=== PATIENT | female | born 1950 | race Caucasian/White ===

== ENCOUNTER → 2016-06-04 | Outpatient (CLI) | payer MEDICARE, MEDICAID ==
[~2016-06-04] VITALS: Ht 162.6 cm; Wt 111.6 kg
[~2016-06-04] MED LIST: ANTIVERT 25MG25 MG PO; CEPHALEXIN500 M1 PO; CLARITIN 1010 MG/TAB PO; DEXILANT30 MG PO; HCTZ 25MG TAB25 MG PO; LIORESAL 1010 MG/TAB PO; LIPITOR 80MG80 MG PO; MACROBID 1100 MG/CAP PO; MOBIC15 MG PO; NASONEX SPRAY17 GM NS; NEURONTIN100 MG/CAP PO; NORCO 325 MG-51 TAB PO; PATADAY 2.5 ML2.5 ML OU; PERCOCET 325 MG1 TA2 PO; PHENTERMINE15 MG PO; PRAVACHOL 40MG40 MG PO; PRIL40 PO; PRINZIDE 12.5 M1 TA1 PO; PROTONIX20 MG PO; PYRIDIUM200 M1 PO; SENOKOT S 50 MG1 TAB PO; SENOKOT8.6 MG PO; SINGULAIR 110 MG/TAB PO; ULTRAM 50MG TAB50 MG PO; ZANTAC 7575 MG PO; ZESTRIL 10MG10 MG PO
[2016-06-04 10:24] VITALS: BP 128/57; PULSE 70
[2016-06-04 10:48] VITALS: BP 128/57; PULSE 70
== END ==
LOC: LIGHT 10:20
DX: M50.021 Cervical disc disorder at C4-C5 level with myelopathy (principal)

== ENCOUNTER → 2016-08-06 | Outpatient (CLI) | payer MEDICARE, MEDICAID ==
[~2016-08-06] VITALS: Ht 162.6 cm; Wt 110.9 kg
== END ==
LOC: LIGHT 10:10
DX: M47.896 Other spondylosis, lumbar region (principal); K21.9 Gastro-esophageal reflux disease without esophagitis; E66.01 Morbid (severe) obesity due to excess calories; Z68.41 Body mass index [BMI] 40.0-44.9, adult; M17.0 Bilateral primary osteoarthritis of knee; Z90.710 Acquired absence of both cervix and uterus

== ENCOUNTER → 2016-09-17 | Outpatient (CLI) | payer MEDICARE, MEDICAID ==
[~2016-09-17] VITALS: Ht 162.6 cm; Wt 108.9 kg
[2016-09-17 09:35] VITALS: BP 114/76; PULSE 68
== END ==
LOC: LIGHT 09:30
DX: M47.816 Spondylosis without myelopathy or radiculopathy, lumbar region (principal); K21.9 Gastro-esophageal reflux disease without esophagitis; E66.01 Morbid (severe) obesity due to excess calories; Z68.41 Body mass index [BMI] 40.0-44.9, adult; Z71.3 Dietary counseling and surveillance; M17.0 Bilateral primary osteoarthritis of knee

== ENCOUNTER → 2016-10-29 | Outpatient (CLI) | payer MEDICARE, MEDICAID ==
[~2016-10-29] VITALS: Ht 162.6 cm; Wt 109.1 kg
[2016-10-29 09:54] VITALS: BP 145/63; PULSE 63
== END ==
LOC: LIGHT 09:25
DX: M47.816 Spondylosis without myelopathy or radiculopathy, lumbar region (principal); K21.9 Gastro-esophageal reflux disease without esophagitis; E66.01 Morbid (severe) obesity due to excess calories; Z68.41 Body mass index [BMI] 40.0-44.9, adult; Z71.3 Dietary counseling and surveillance; M17.0 Bilateral primary osteoarthritis of knee

== ENCOUNTER → 2016-11-23 | Outpatient (CLI) | payer MEDICARE, MEDICAID | LOC: MC.RAD 06:56 | DX: Z12.31 Encounter for screening mammogram for malignant neoplasm of breast (principal) ==

== ENCOUNTER → 2016-12-24 | Outpatient (CLI) | payer MEDICARE, MEDICAID ==
[~2016-12-24] VITALS: Ht 162.6 cm; Wt 108.0 kg
[2016-12-24 09:49] VITALS: BP 116/60; PULSE 64
== END ==
LOC: LIGHT 09:39
DX: M47.896 Other spondylosis, lumbar region (principal); M17.0 Bilateral primary osteoarthritis of knee; K21.9 Gastro-esophageal reflux disease without esophagitis; E66.01 Morbid (severe) obesity due to excess calories; Z68.41 Body mass index [BMI] 40.0-44.9, adult; Z90.89 Acquired absence of other organs; Z90.710 Acquired absence of both cervix and uterus; Z96.643 Presence of artificial hip joint, bilateral; Z98.890 Other specified postprocedural states

== ENCOUNTER → 2017-01-08 | Outpatient (CLI) | payer MEDICARE, MEDICAID, OTHER | LOC: MHCPAIN 08:05 | DX: G89.29 Other chronic pain (principal); M47.817 Spondylosis without myelopathy or radiculopathy, lumbosacral region; M53.3 Sacrococcygeal disorders, not elsewhere classified; M54.2 Cervicalgia; E66.9 Obesity, unspecified; Z87.891 Personal history of nicotine dependence | CPT/HCPCS: G0463 ==

== ENCOUNTER → 2017-01-25 | Outpatient (CLI) | payer MEDICARE | LOC: COL.RAD 07:22 | DX: M47.812 Spondylosis without myelopathy or radiculopathy, cervical region (principal); M47.817 Spondylosis without myelopathy or radiculopathy, lumbosacral region; M46.87 Other specified inflammatory spondylopathies, lumbosacral region; M43.16 Spondylolisthesis, lumbar region ==

== ENCOUNTER → 2017-02-05 | Outpatient (CLI) | payer MEDICARE | LOC: MHCPAIN 08:21 | DX: G89.29 Other chronic pain (principal); M47.27 Other spondylosis with radiculopathy, lumbosacral region; M53.3 Sacrococcygeal disorders, not elsewhere classified; Z87.891 Personal history of nicotine dependence | CPT/HCPCS: G0463 ==

== ENCOUNTER → 2017-02-25 | Outpatient (CLI) | payer MEDICARE ==
[~2017-02-25] VITALS: Ht 162.6 cm; Wt 110.2 kg
[~2017-02-25] MED LIST changes: +FASTIN30 MG PO; +NEURONTIN300 MG/CAP PO; +PAMELOR 25MG25 MG PO; -PHENTERMINE15 MG PO; +ZOFRAN ODT4 MG PO
[2017-02-25 09:13] VITALS: BP 130/68; PULSE 80
== END ==
LOC: LIGHT 08:51
DX: M47.9 Spondylosis, unspecified (principal); K21.9 Gastro-esophageal reflux disease without esophagitis; M17.0 Bilateral primary osteoarthritis of knee; E66.01 Morbid (severe) obesity due to excess calories; Z68.41 Body mass index [BMI] 40.0-44.9, adult; Z71.3 Dietary counseling and surveillance

== ENCOUNTER 2017-03-14 12:52 | Emergency (ER) | payer MEDICARE, OTHER, MEDICAID ==
[~2017-03-14] VITALS: Ht 162.6 cm; Wt 109.1 kg
[~2017-03-14 12:52] MED LIST changes: -NEURONTIN300 MG/CAP PO; -ZOFRAN ODT4 MG PO
[2017-03-14 12:56] VITALS: BP 142/73; TEMP 98.1
[2017-03-14] MEDS ORDERED: NEURONTIN300 MG/CAP PO (13:48)
[2017-03-14] MEDS ORDERED: PRAVACHOL 40MG40 MG PO (13:51)
[2017-03-14 15:07] LABS: BASO # 0.1 (0.0-0.2); BASO % 0.7 % (0.0-2.0); EOS # 0.2 (0.0-0.7); EOS % 2.7 % (0-4.0); GRAN # 4.7 (1.4-6.5); HEMOGLOBIN 13.3 g/dl (12.5-16.0); LYMPH # 2.1 (1.2-3.4); LYMPH % 27.6 % (20.0-51.0); MEAN CELL VOLUME 89 fl (80.0-100.0); MEAN CORPUSCULAR HEMOGLOBIN 30 pg (27.0-31.0); MEAN CORPUSCULAR HGB CONC 34 g/dl (33.0-37.0); MEAN PLATELET VOLUME 9.9 fl (7.4-10.4); MONO # 0.5 (0.1-0.6); MONO % 6.7 % (1.7-9.3); PLATELET COUNT 212 K/mm3 (130-400); RED BLOOD COUNT 4.38 M/mm3 (4.10-5.30); WHITE BLOOD COUNT 7.5 K/mm3 (4.8-10.8)
[2017-03-14 15:20] LABS: ADJUSTED CALCIUM 8.9 mg/dL (8.4-10.2); ALBUMIN 3.9 gm/dL (3.5-5.0); BILIRUBIN,TOTAL 0.5 mg/dL (0.0-1.0); CALCIUM 8.8 mg/dL (8.4-10.2); CREATININE, serum 0.84 mg/dL (0.52-1.25); POTASSIUM 3.1 mmol/L (3.4-5.0); TOTAL PROTEIN 6.3 gm/dL (6.4-8.2)
[2017-03-14 15:47] LABS: COLLECTION METHOD CLEAN CATCH
[2017-03-14 16:10] LABS: MUCOUS Present /lpf; PH 6 (5-8); SQUAMOUS EPITHELIAL 0-2 /hpf; URINE APPEARANCE Clear; URINE BACTERIA None Seen /hpf; URINE BILIRUBIN Negative (NEGATIVE); URINE BLOOD Negative (NEGATIVE); URINE COLOR Yellow; URINE GLUCOSE Negative (NEGATIVE); URINE KETONE Negative (NEGATIVE); URINE LEUKOCYTE ESTERASE Negative (NEGATIVE); URINE PROTEIN(semi-quant) Negative (NEGATIVE); URINE RBC 0-2 /hpf; URINE UROBILINOGEN Negative (NEGATIVE); URINE WBC 0-2 /hpf
[2017-03-14] MEDS ORDERED: ZOFRAN ODT4 MG PO (16:50)
[2017-03-14 17:07] VITALS: PULSE 63
== END 2017-03-14 17:10 | disposition home or self-care (01) ==
LOC: COL.ER 12:52
PROVIDERS: Emergency Medicine
DX: R11.2 Nausea with vomiting, unspecified (principal); R53.81 Other malaise; I10 Essential (primary) hypertension; F17.210 Nicotine dependence, cigarettes, uncomplicated; Z90.710 Acquired absence of both cervix and uterus; Z96.661 Presence of right artificial ankle joint
CPT/HCPCS: J2405; J7040

== ENCOUNTER 2017-03-23 07:52 | Outpatient (RCR) | payer MEDICARE, OTHER, MEDICAID ==
[~2017-03-23 07:52] MED LIST changes: +NEURONTIN300 MG/CAP PO; +ZOFRAN ODT4 MG PO
== END 2017-03-24 10:10 | disposition still patient (30) ==
LOC: WSPT 07:52
DX: Z01.818 Encounter for other preprocedural examination (principal); M25.811 Other specified joint disorders, right shoulder
CPT/HCPCS: G8984-GP; G8985-GP

== ENCOUNTER → 2017-04-08 | Outpatient (CLI) | payer MEDICARE, OTHER, MEDICAID ==
[~2017-04-08] VITALS: Ht 162.6 cm; Wt 112.3 kg
[2017-04-08 15:29] VITALS: BP 94/64; PULSE 72
== END ==
LOC: LIGHT 15:17
DX: M47.816 Spondylosis without myelopathy or radiculopathy, lumbar region (principal); K21.9 Gastro-esophageal reflux disease without esophagitis; E66.01 Morbid (severe) obesity due to excess calories; Z68.41 Body mass index [BMI] 40.0-44.9, adult; Z71.3 Dietary counseling and surveillance; M17.0 Bilateral primary osteoarthritis of knee

== ENCOUNTER → 2017-04-13 | Outpatient (CLI) | payer MEDICARE, OTHER, MEDICAID | LOC: MHCPAIN 08:04 | DX: G89.29 Other chronic pain (principal); M47.817 Spondylosis without myelopathy or radiculopathy, lumbosacral region; M53.3 Sacrococcygeal disorders, not elsewhere classified; Z87.891 Personal history of nicotine dependence | CPT/HCPCS: G0463 ==

== ENCOUNTER → 2017-05-11 | Outpatient (CLI) | payer MEDICARE, OTHER, MEDICAID | LOC: MHCPAIN 13:46 | DX: G89.29 Other chronic pain (principal); M47.27 Other spondylosis with radiculopathy, lumbosacral region; M53.3 Sacrococcygeal disorders, not elsewhere classified; Z87.891 Personal history of nicotine dependence | CPT/HCPCS: G0463 ==

== ENCOUNTER → 2017-05-20 | Outpatient (CLI) | payer MEDICARE, OTHER | LOC: COL.RAD 12:18 | DX: M25.511 Pain in right shoulder (principal); Z96.611 Presence of right artificial shoulder joint ==

== ENCOUNTER → 2017-05-20 | Outpatient (CLI) | payer MEDICARE, OTHER ==
[~2017-05-20] VITALS: Ht 162.6 cm; Wt 109.1 kg
[2017-05-20 09:33] VITALS: BP 96/56; PULSE 72
== END ==
LOC: LIGHT 09:28
DX: M47.9 Spondylosis, unspecified (principal); K21.9 Gastro-esophageal reflux disease without esophagitis; E66.01 Morbid (severe) obesity due to excess calories; Z68.41 Body mass index [BMI] 40.0-44.9, adult; Z71.3 Dietary counseling and surveillance; M17.0 Bilateral primary osteoarthritis of knee
CPT/HCPCS: G0463

== ENCOUNTER → 2017-05-25 | Outpatient (CLI) | payer MEDICARE, OTHER | LOC: COL.RAD 10:45 | DX: M25.511 Pain in right shoulder (principal); Z96.611 Presence of right artificial shoulder joint | CPT/HCPCS: Q9967 ==

== ENCOUNTER → 2017-06-10 | Outpatient (CLI) | payer MEDICARE, OTHER | LOC: MHCPAIN 09:59 | DX: M47.817 Spondylosis without myelopathy or radiculopathy, lumbosacral region (principal) ==

== ENCOUNTER → 2017-06-16 | Outpatient (CLI) | payer MEDICARE, OTHER, MEDICAID | LOC: MHCPAIN 09:57 | DX: G89.29 Other chronic pain (principal); M47.817 Spondylosis without myelopathy or radiculopathy, lumbosacral region; M54.16 Radiculopathy, lumbar region; M53.3 Sacrococcygeal disorders, not elsewhere classified; M48.061 Spinal stenosis, lumbar region without neurogenic claudication | CPT/HCPCS: G0463 ==

== ENCOUNTER → 2017-06-24 | Outpatient (CLI) | payer MEDICARE, OTHER, MEDICAID ==
[~2017-06-24] VITALS: Ht 162.6 cm; Wt 108.2 kg
[2017-06-24 10:11] VITALS: BP 100/60; PULSE 72
== END ==
LOC: LIGHT 08:50
DX: M47.9 Spondylosis, unspecified (principal); K21.9 Gastro-esophageal reflux disease without esophagitis; E66.01 Morbid (severe) obesity due to excess calories; Z68.41 Body mass index [BMI] 40.0-44.9, adult; Z71.3 Dietary counseling and surveillance; M17.0 Bilateral primary osteoarthritis of knee
CPT/HCPCS: G0463

== ENCOUNTER → 2017-06-25 | Outpatient (CLI) | payer MEDICARE, OTHER, MEDICAID | LOC: COL.RAD 09:19 | DX: M25.551 Pain in right hip (principal) | CPT/HCPCS: J3301; Q9967 ==

== ENCOUNTER → 2017-07-01 | Outpatient (RCR) | payer MEDICARE, OTHER, MEDICAID | LOC: WSPT | DX: Z47.89 Encounter for other orthopedic aftercare (principal); Z96.611 Presence of right artificial shoulder joint | CPT/HCPCS: G0283-GP; G8984-GP; G8985-GP ==

== ENCOUNTER → 2017-07-08 | Outpatient (CLI) | payer MEDICARE, OTHER, MEDICAID | LOC: MHCPAIN 09:51 | DX: M47.817 Spondylosis without myelopathy or radiculopathy, lumbosacral region (principal) ==

== ENCOUNTER → 2017-07-12 | Outpatient (CLI) | payer MEDICARE, OTHER, MEDICAID | LOC: MHCPAIN 11:26 | DX: G89.29 Other chronic pain (principal); M47.27 Other spondylosis with radiculopathy, lumbosacral region; M53.3 Sacrococcygeal disorders, not elsewhere classified; Z87.891 Personal history of nicotine dependence | CPT/HCPCS: G0463 ==

== ENCOUNTER → 2017-07-15 | Outpatient (CLI) | payer MEDICARE, OTHER, MEDICAID ==
[~2017-07-15] VITALS: Ht 162.6 cm; Wt 106.4 kg
[2017-07-15 14:20] VITALS: BP 102/68; PULSE 84
== END ==
LOC: LIGHT 14:16
DX: M47.9 Spondylosis, unspecified (principal); K21.9 Gastro-esophageal reflux disease without esophagitis; E66.01 Morbid (severe) obesity due to excess calories; Z68.41 Body mass index [BMI] 40.0-44.9, adult; Z71.3 Dietary counseling and surveillance; M17.0 Bilateral primary osteoarthritis of knee
CPT/HCPCS: G0463

== ENCOUNTER → 2017-07-21 | Outpatient (CLI) | payer MEDICARE, OTHER, MEDICAID | LOC: MHCPAIN 12:40 | DX: M47.817 Spondylosis without myelopathy or radiculopathy, lumbosacral region (principal) ==

== ENCOUNTER → 2017-07-28 | Outpatient (CLI) | payer MEDICARE, OTHER, MEDICAID | LOC: MHCPAIN 07:57 | DX: G89.29 Other chronic pain (principal); M47.817 Spondylosis without myelopathy or radiculopathy, lumbosacral region; M54.16 Radiculopathy, lumbar region; M53.3 Sacrococcygeal disorders, not elsewhere classified | CPT/HCPCS: G0463 ==

== ENCOUNTER → 2017-08-19 | Outpatient (CLI) | payer MEDICARE, OTHER, MEDICAID | LOC: MHCPAIN 11:53 | DX: M47.817 Spondylosis without myelopathy or radiculopathy, lumbosacral region (principal); M12.88 Other specific arthropathies, not elsewhere classified, other specified site; M43.16 Spondylolisthesis, lumbar region | CPT/HCPCS: J1100; J2250; J3010 ==

== ENCOUNTER → 2017-09-16 | Outpatient (CLI) | payer MEDICARE, OTHER, MEDICAID | LOC: MHCPAIN 10:23 | DX: M47.817 Spondylosis without myelopathy or radiculopathy, lumbosacral region (principal); M43.16 Spondylolisthesis, lumbar region | CPT/HCPCS: J1100; J2250; J3010 ==

== ENCOUNTER 2017-09-23 12:30 | Outpatient (RCR) | payer MEDICARE, OTHER, MEDICAID | END 2017-10-03 | disposition home or self-care (01) | LOC: WSPT | DX: Z47.1 Aftercare following joint replacement surgery (principal); Z96.611 Presence of right artificial shoulder joint | CPT/HCPCS: G8984-GP; G8985-GP ==

== ENCOUNTER → 2017-09-28 | Outpatient (CLI) | payer MEDICARE, OTHER, MEDICAID | LOC: MHCPAIN 08:35 | DX: G89.29 Other chronic pain (principal); M47.817 Spondylosis without myelopathy or radiculopathy, lumbosacral region; M53.3 Sacrococcygeal disorders, not elsewhere classified; M96.1 Postlaminectomy syndrome, not elsewhere classified; M50.90 Cervical disc disorder, unspecified, unspecified cervical region; R51 Headache | CPT/HCPCS: G0463 ==

== ENCOUNTER → 2017-09-30 | Outpatient (CLI) | payer MEDICARE, OTHER, MEDICAID ==
[~2017-09-30] VITALS: Ht 162.6 cm; Wt 108.2 kg
[2017-09-30 09:43] VITALS: BP 122/66; PULSE 76
== END ==
LOC: LIGHT 09:39
DX: M47.9 Spondylosis, unspecified (principal); K21.9 Gastro-esophageal reflux disease without esophagitis; E66.01 Morbid (severe) obesity due to excess calories; Z68.41 Body mass index [BMI] 40.0-44.9, adult; Z71.3 Dietary counseling and surveillance; M17.0 Bilateral primary osteoarthritis of knee
CPT/HCPCS: G0463

== ENCOUNTER → 2017-10-07 | Outpatient (CLI) | payer MEDICARE, OTHER, MEDICAID | LOC: MHCPAIN 08:04 | DX: M50.321 Other cervical disc degeneration at C4-C5 level (principal) ==

== ENCOUNTER → 2017-10-13 | Outpatient (CLI) | payer MEDICARE, OTHER, MEDICAID | LOC: MHCPAIN 08:32 | DX: G89.29 Other chronic pain (principal); M47.817 Spondylosis without myelopathy or radiculopathy, lumbosacral region; M54.16 Radiculopathy, lumbar region; M53.3 Sacrococcygeal disorders, not elsewhere classified; M50.90 Cervical disc disorder, unspecified, unspecified cervical region; R51 Headache | CPT/HCPCS: G0463 ==

== ENCOUNTER → 2017-10-13 | Outpatient (CLI) | payer MEDICARE, OTHER, MEDICAID | LOC: COL.RAD 09:38 | DX: M43.16 Spondylolisthesis, lumbar region (principal); M53.2X6 Spinal instabilities, lumbar region; I70.0 Atherosclerosis of aorta ==

== ENCOUNTER → 2017-11-04 | Outpatient (CLI) | payer MEDICARE, OTHER, MEDICAID ==
[~2017-11-04] VITALS: Ht 162.6 cm; Wt 110.7 kg
== END ==
LOC: LIGHT 09:41
DX: M47.816 Spondylosis without myelopathy or radiculopathy, lumbar region (principal); K21.9 Gastro-esophageal reflux disease without esophagitis; E66.01 Morbid (severe) obesity due to excess calories; Z68.41 Body mass index [BMI] 40.0-44.9, adult; Z71.3 Dietary counseling and surveillance; M17.0 Bilateral primary osteoarthritis of knee
CPT/HCPCS: G0463

== ENCOUNTER → 2017-11-11 | Outpatient (CLI) | payer MEDICARE, OTHER, MEDICAID ==
[~2017-11-11] MED LIST changes: +ADIPEX-P37.5 MG PO; -FASTIN30 MG PO
== END ==
LOC: MHCPAIN 12:59
DX: M47.817 Spondylosis without myelopathy or radiculopathy, lumbosacral region (principal); M43.16 Spondylolisthesis, lumbar region; M48.061 Spinal stenosis, lumbar region without neurogenic claudication
CPT/HCPCS: J1040; Q9967

== ENCOUNTER → 2017-11-24 | Outpatient (CLI) | payer MEDICARE, OTHER, MEDICAID | LOC: MHCPAIN 13:25 | DX: G89.29 Other chronic pain (principal); M47.817 Spondylosis without myelopathy or radiculopathy, lumbosacral region; M54.16 Radiculopathy, lumbar region; M53.3 Sacrococcygeal disorders, not elsewhere classified | CPT/HCPCS: G0463 ==

== ENCOUNTER → 2017-11-29 | Outpatient (CLI) | payer MEDICARE, OTHER, MEDICAID | LOC: COL.RAD 08:46 | DX: K22.4 Dyskinesia of esophagus (principal); K21.9 Gastro-esophageal reflux disease without esophagitis ==

== ENCOUNTER → 2017-12-06 | Outpatient (CLI) | payer MEDICARE, OTHER, MEDICAID | LOC: COL.VAS 13:49 | DX: I10 Essential (primary) hypertension (principal) ==

== ENCOUNTER → 2017-12-07 | Outpatient (CLI) | payer MEDICARE, OTHER, MEDICAID | LOC: MC.RAD 13:55 | DX: Z12.31 Encounter for screening mammogram for malignant neoplasm of breast (principal) ==

== ENCOUNTER → 2018-01-06 | Outpatient (CLI) | payer MEDICARE, OTHER, MEDICAID | LOC: LIGHT 11:13 | DX: Z01.818 Encounter for other preprocedural examination (principal) ==

== ENCOUNTER → 2018-02-08 | Outpatient (CLI) | payer MEDICARE, OTHER, MEDICAID | LOC: MHCPAIN 14:02 | DX: G89.29 Other chronic pain (principal); M47.817 Spondylosis without myelopathy or radiculopathy, lumbosacral region; M54.16 Radiculopathy, lumbar region; M53.3 Sacrococcygeal disorders, not elsewhere classified | CPT/HCPCS: G0463 ==

== ENCOUNTER → 2018-02-24 | Outpatient (CLI) | payer MEDICARE, OTHER, MEDICAID ==
[~2018-02-24] VITALS: Ht 162.6 cm; Wt 110.0 kg
[2018-02-24 15:43] VITALS: BP 144/80; PULSE 80
== END ==
LOC: LIGHT 11:04
DX: K21.9 Gastro-esophageal reflux disease without esophagitis (principal); E66.01 Morbid (severe) obesity due to excess calories; Z68.41 Body mass index [BMI] 40.0-44.9, adult; Z71.3 Dietary counseling and surveillance
CPT/HCPCS: G0463

== ENCOUNTER → 2018-04-04 | Outpatient (CLI) | payer MEDICARE, OTHER, MEDICAID | LOC: COL.RAD 12:53 | DX: S46.811A Strain of other muscles, fascia and tendons at shoulder and upper arm level, right arm, initial encounter (principal); Z96.611 Presence of right artificial shoulder joint | CPT/HCPCS: Q9967 ==

== ENCOUNTER → 2018-04-07 | Outpatient (CLI) | payer MEDICARE, OTHER, MEDICAID | LOC: MHCPAIN 13:57 | DX: M47.817 Spondylosis without myelopathy or radiculopathy, lumbosacral region (principal); M54.16 Radiculopathy, lumbar region ==

== ENCOUNTER → 2018-05-05 | Outpatient (CLI) | payer MEDICARE, OTHER, MEDICAID ==
[~2018-05-05] VITALS: Ht 162.6 cm; Wt 115.0 kg
[2018-05-05 13:08] VITALS: BP 130/80; PULSE 84
== END ==
LOC: LIGHT 12:47
DX: K21.9 Gastro-esophageal reflux disease without esophagitis (principal); M19.90 Unspecified osteoarthritis, unspecified site; E66.01 Morbid (severe) obesity due to excess calories; Z68.41 Body mass index [BMI] 40.0-44.9, adult; Z71.3 Dietary counseling and surveillance
CPT/HCPCS: G0463

== ENCOUNTER → 2018-05-05 | Outpatient (CLI) | payer MEDICARE, OTHER, MEDICAID | LOC: MHCPAIN 07:41 | DX: G89.29 Other chronic pain (principal); M47.817 Spondylosis without myelopathy or radiculopathy, lumbosacral region; M54.16 Radiculopathy, lumbar region; M53.3 Sacrococcygeal disorders, not elsewhere classified | CPT/HCPCS: G0463; J1100; J2250; J3010 ==

== ENCOUNTER → 2018-05-16 | Outpatient (CLI) | payer MEDICARE, OTHER, MEDICAID | LOC: MHCPAIN 11:18 | DX: M47.817 Spondylosis without myelopathy or radiculopathy, lumbosacral region (principal); M54.16 Radiculopathy, lumbar region | CPT/HCPCS: J1100; J2250; J3010 ==

== ENCOUNTER 2018-05-30 13:00 | Outpatient (RCR) | payer MEDICARE, OTHER, MEDICAID ==
[2018-06-18] MEDS ORDERED: NORCO 325 MG-51 TAB PO (14:21)
[2018-06-20] MEDS ORDERED: PERCOCET 325 MG1 TA2 PO (07:16)
[2018-06-20] MEDS ORDERED: ASPIRIN 32325 MG/TAB PO (07:18)
[2018-06-21] MEDS ORDERED: DULCOLAX S10 MG/SUPP RC (07:57)
[2018-06-21] MEDS ORDERED: XARELTO10 MG PO (07:57)
[2018-06-21] MEDS ORDERED: COLACE 100100 MG/CAP PO (07:57)
[2018-06-21] MEDS ORDERED: LIORESAL 1010 MG/TAB PO (07:57)
[2018-06-21] MEDS ORDERED: SENOKOT S 50 MG1 TAB PO (07:57)
[2018-06-21] MEDS ORDERED: GOOD NEIGH1200 MG/15 PO (07:57)
[2018-06-21] MEDS ORDERED: NORCO 325 MG-7.1 TAB PO (08:00)
[2018-06-21] MEDS ORDERED: ULTRAM 50MG TAB50 MG PO (08:00)
== END 2018-06-21 14:11 | disposition home or self-care (01) ==
LOC: WSPT 13:00
DX: Z47.1 Aftercare following joint replacement surgery (principal); Z96.611 Presence of right artificial shoulder joint
CPT/HCPCS: G8984-GP; G8985-GP

== ENCOUNTER 2018-06-16 15:30 | Outpatient (RCR) | payer MEDICARE, OTHER, MEDICAID ==
[~2018-06-16 15:30] MED LIST changes: -ASPIRIN 32325 MG/TAB PO
[2018-06-18] MEDS ORDERED: NORCO 325 MG-51 TAB PO (14:21)
[2018-06-20] MEDS ORDERED: PERCOCET 325 MG1 TA2 PO (07:16)
[2018-06-20] MEDS ORDERED: ASPIRIN 32325 MG/TAB PO (07:18)
[2018-06-21] MEDS ORDERED: LIORESAL 1010 MG/TAB PO (07:57)
[2018-06-21] MEDS ORDERED: COLACE 100100 MG/CAP PO (07:57)
[2018-06-21] MEDS ORDERED: DULCOLAX S10 MG/SUPP RC (07:57)
[2018-06-21] MEDS ORDERED: XARELTO10 MG PO (07:57)
[2018-06-21] MEDS ORDERED: SENOKOT S 50 MG1 TAB PO (07:57)
[2018-06-21] MEDS ORDERED: GOOD NEIGH1200 MG/15 PO (07:57)
[2018-06-21] MEDS ORDERED: ULTRAM 50MG TAB50 MG PO (08:00)
[2018-06-21] MEDS ORDERED: NORCO 325 MG-7.1 TAB PO (08:00)
== END 2018-06-21 14:10 | disposition home or self-care (01) ==
LOC: WSPT 15:30
DX: M47.816 Spondylosis without myelopathy or radiculopathy, lumbar region (principal); M17.0 Bilateral primary osteoarthritis of knee; M25.552 Pain in left hip; M25.551 Pain in right hip

== ENCOUNTER → 2018-06-16 | Outpatient (CLI) | payer MEDICARE, OTHER, MEDICAID ==
[~2018-06-16] VITALS: Ht 162.6 cm; Wt 114.1 kg
[~2018-06-16] MED LIST changes: +ASPIRIN 32325 MG/TAB PO
[2018-06-16 10:59] VITALS: BP 116/70; PULSE 68
== END ==
LOC: LIGHT 10:33
DX: K21.9 Gastro-esophageal reflux disease without esophagitis (principal); M17.0 Bilateral primary osteoarthritis of knee; Z68.43 Body mass index [BMI] 50.0-59.9, adult; Z71.3 Dietary counseling and surveillance
CPT/HCPCS: G0463

== ENCOUNTER → 2018-06-29 | Outpatient (CLI) | payer MEDICARE, OTHER, MEDICAID ==
[~2018-06-29] MED LIST changes: +ASPIRIN 32325 MG/TAB PO; +COLACE 100100 MG/CAP PO; +DULCOLAX S10 MG/SUPP RC; +GOOD NEIGH1200 MG/15 PO; +NORCO 325 MG-7.1 TAB PO; +XARELTO10 MG PO
== END ==
LOC: COL.RAD 13:22
DX: M25.551 Pain in right hip (principal)
CPT/HCPCS: J3301; Q9967

== ENCOUNTER 2018-07-12 14:55 | Outpatient (CLI) | payer MEDICARE, OTHER, MEDICAID ==
[~2018-07-12] VITALS: Ht 162.6 cm; Wt 113.7 kg
[2018-07-12 15:15] VITALS: BP 106/55; PULSE 62; TEMP 97.8
--- NOTE | 2018-07-12 16:15 | NUR ---
Pt stayed 30 minutes post Reclast infusion d/t this being the first time she has recieved this medication. INT discontinued intact.
== END 2018-07-12 16:16 | disposition home or self-care (01) ==
LOC: EUO 14:55
DX: M81.0 Age-related osteoporosis without current pathological fracture (principal)
CPT/HCPCS: J3489

== ENCOUNTER → 2018-07-19 | Outpatient (CLI) | payer MEDICARE, OTHER, MEDICAID | LOC: MHCPAIN 12:21 | DX: G89.29 Other chronic pain (principal); M47.817 Spondylosis without myelopathy or radiculopathy, lumbosacral region; M54.16 Radiculopathy, lumbar region; M53.3 Sacrococcygeal disorders, not elsewhere classified | CPT/HCPCS: G0463 ==

== ENCOUNTER 2018-08-07 19:26 | Emergency (ER) | payer MEDICARE, OTHER, MEDICAID ==
[~2018-08-07] VITALS: Ht 162.6 cm; Wt 113.6 kg
[2018-08-07 19:33] VITALS: TEMP 97.4
[2018-08-07 21:37] VITALS: BP 134/76; PULSE 91
== END 2018-08-07 21:50 | disposition home or self-care (01) ==
LOC: COL.ER 19:26
DX: S01.511A Laceration without foreign body of lip, initial encounter (principal); E78.00 Pure hypercholesterolemia, unspecified; K21.9 Gastro-esophageal reflux disease without esophagitis; W01.0XXA Fall on same level from slipping, tripping and stumbling without subsequent striking against object, initial encounter; Y92.009 Unspecified place in unspecified non-institutional (private) residence as the place of occurrence of the external cause

== ENCOUNTER 2018-08-14 13:52 | Emergency (ER) | payer MEDICARE, OTHER, MEDICAID ==
[2018-08-14 13:58] VITALS: BP 133/63; PULSE 88; TEMP 96.7
== END 2018-08-14 14:15 | disposition home or self-care (01) ==
LOC: COL.ER 13:52
DX: S01.511D Laceration without foreign body of lip, subsequent encounter (principal); Z79.891 Long term (current) use of opiate analgesic

== ENCOUNTER → 2018-09-13 | Outpatient (CLI) | payer MEDICARE, OTHER, MEDICAID ==
[~2018-09-13] MED LIST changes: +PHENTERMINE15 MG PO
== END ==
LOC: MHCPAIN 13:27
DX: G89.29 Other chronic pain (principal); M47.817 Spondylosis without myelopathy or radiculopathy, lumbosacral region; M54.16 Radiculopathy, lumbar region; M53.3 Sacrococcygeal disorders, not elsewhere classified; M54.12 Radiculopathy, cervical region
CPT/HCPCS: G0463

== ENCOUNTER → 2018-09-15 | Outpatient (CLI) | payer MEDICARE, OTHER, MEDICAID ==
[~2018-09-15] VITALS: Ht 162.6 cm; Wt 112.5 kg
[2018-09-15 08:43] VITALS: BP 108/78; PULSE 64
== END ==
LOC: LIGHT 08-04 16:09
DX: K21.9 Gastro-esophageal reflux disease without esophagitis (principal); M19.90 Unspecified osteoarthritis, unspecified site; E66.01 Morbid (severe) obesity due to excess calories; Z68.41 Body mass index [BMI] 40.0-44.9, adult; Z71.3 Dietary counseling and surveillance
CPT/HCPCS: G0463

== ENCOUNTER 2018-09-22 13:00 | Outpatient (RCR) | payer MEDICARE, OTHER, MEDICAID ==
[2018-10-26] MEDS ORDERED: ANTIVERT 25MG25 MG PO (17:43)
== END 2018-11-13 ==
LOC: WSPT
DX: Z47.89 Encounter for other orthopedic aftercare (principal); S72.422D Displaced fracture of lateral condyle of left femur, subsequent encounter for closed fracture with routine healing; M53.3 Sacrococcygeal disorders, not elsewhere classified; M47.27 Other spondylosis with radiculopathy, lumbosacral region; M50.10 Cervical disc disorder with radiculopathy, unspecified cervical region

== ENCOUNTER 2018-10-26 14:33 | Emergency (ER) | payer MEDICARE, OTHER, MEDICAID ==
[~2018-10-26] VITALS: Ht 162.6 cm; Wt 112.7 kg
[2018-10-26 14:37] VITALS: TEMP 97.6
[2018-10-26 15:12] LABS: ALANINE AMINOTRANSFERASE 12 U/L (9-52); ALBUMIN 3.9 gm/dL (3.5-5.0); ALKALINE PHOSPHATASE 92 U/L (50-136); ANION GAP 7 mmol/L (7-16); AST,SGOT 18 U/L (15-37); BILIRUBIN,TOTAL 0.4 mg/dL (0.0-1.0); BLOOD UREA NITROGEN 14 mg/dL (7-17); C-REACTIVE PROTEIN 0.7 mg/dL (0.0-0.9); CALCIUM 9.4 mg/dL (8.4-10.2); CARBON DIOXIDE 31 mmol/L (22-30); CHLORIDE 101 mmol/L (98-107); CREATININE, serum 0.79 (0.52-1.25); GLUCOSE 97 mg/dL (74-106); LIPASE 57 U/L (23-300); POTASSIUM 3.3 mmol/L (3.4-5.0); SODIUM 139 mmol/L (137-145)
[2018-10-26 15:13] LABS: BASO # 0.1 (0.0-0.2); BASO % 0.7 % (0.0-2.0); EOS # 0.2 (0.0-0.7); EOS % 2.9 % (0-4.0); GRAN % 53.6 % (42.2-75.2); HEMATOCRIT 43.2 % (37.0-47.0); HEMOGLOBIN 14.3 g/dl (12.5-16.0); LYMPH # 2.5 (1.2-3.4); LYMPH % 33.6 % (20.0-51.0); MEAN CELL VOLUME 88 fl (80.0-100.0); MEAN CORPUSCULAR HEMOGLOBIN 29 pg (27.0-31.0); MEAN CORPUSCULAR HGB CONC 33 g/dl (33.0-37.0); MEAN PLATELET VOLUME 10.1 fl (7.4-10.4); MONO # 0.7 (0.1-0.6); MONO % 8.8 % (1.7-9.3); PLATELET COUNT 278 K/mm3 (130-400); RED BLOOD COUNT 4.91 M/mm3 (4.10-5.30); REDCELL DISTRIBUTION WIDTH-CV 14.4 % (11.5-14.5)
[2018-10-26 15:22] LABS: TROPONIN-I < 0.012 ng/mL (0.000-0.035)
[2018-10-26] MEDS ORDERED: ANTIVERT 25MG25 MG PO (17:43)
[2018-10-26 19:15] VITALS: BP 125/78; PULSE 79
== END 2018-10-26 19:15 | disposition home or self-care (01) ==
LOC: COL.ER 14:33
PROVIDERS: Emergency Medicine
DX: R07.89 Other chest pain (principal); R42 Dizziness and giddiness; I10 Essential (primary) hypertension; E78.5 Hyperlipidemia, unspecified; K21.9 Gastro-esophageal reflux disease without esophagitis; Z87.891 Personal history of nicotine dependence
CPT/HCPCS: J2060; J2405; J7030

== ENCOUNTER 2018-11-10 10:45 | Outpatient (RCR) | payer MEDICARE, OTHER, MEDICAID | END 2018-11-11 09:44 | disposition home or self-care (01) | LOC: WSPT 10:45 | DX: M50.10 Cervical disc disorder with radiculopathy, unspecified cervical region (principal) ==

== ENCOUNTER → 2018-11-10 | Outpatient (CLI) | payer MEDICARE, OTHER, MEDICAID | LOC: COL.RAD 08:34 | DX: I10 Essential (primary) hypertension (principal); M48.02 Spinal stenosis, cervical region ==

== ENCOUNTER → 2018-11-15 | Outpatient (CLI) | payer MEDICARE, OTHER, MEDICAID | LOC: MHCPAIN 07:50 | DX: G89.29 Other chronic pain (principal); M47.817 Spondylosis without myelopathy or radiculopathy, lumbosacral region; M53.3 Sacrococcygeal disorders, not elsewhere classified | CPT/HCPCS: G0463 ==

== ENCOUNTER → 2018-11-17 | Outpatient (CLI) | payer MEDICARE, OTHER, MEDICAID | LOC: MHCPAIN 07:51 | DX: M47.812 Spondylosis without myelopathy or radiculopathy, cervical region (principal); M54.12 Radiculopathy, cervical region ==

== ENCOUNTER 2018-11-24 08:00 | Outpatient (RCR) | payer MEDICARE, OTHER, MEDICAID | END 2018-11-29 09:56 | disposition home or self-care (01) | LOC: WSOT 08:00 | DX: G56.01 Carpal tunnel syndrome, right upper limb (principal) ==

== ENCOUNTER → 2018-11-28 | Outpatient (CLI) | payer MEDICARE, OTHER, MEDICAID | LOC: MHCPAIN 11:05 | DX: G89.29 Other chronic pain (principal); M47.812 Spondylosis without myelopathy or radiculopathy, cervical region; M54.12 Radiculopathy, cervical region ==

== ENCOUNTER → 2018-12-01 | Outpatient (CLI) | payer MEDICARE, OTHER, MEDICAID ==
[~2018-12-01] VITALS: Ht 162.6 cm; Wt 112.0 kg
[2018-12-01 14:39] VITALS: BP 152/60; PULSE 80
== END ==
LOC: LIGHT 11-10 14:19
DX: K21.9 Gastro-esophageal reflux disease without esophagitis (principal); E66.01 Morbid (severe) obesity due to excess calories; Z68.41 Body mass index [BMI] 40.0-44.9, adult; Z71.3 Dietary counseling and surveillance
CPT/HCPCS: G0463

== ENCOUNTER → 2018-12-15 | Outpatient (CLI) | payer MEDICARE, OTHER, MEDICAID | LOC: MHCPAIN 09:18 | DX: M47.812 Spondylosis without myelopathy or radiculopathy, cervical region (principal); M54.12 Radiculopathy, cervical region; G89.29 Other chronic pain | CPT/HCPCS: G0463; J1100; J2250; J3010 ==

== ENCOUNTER → 2018-12-23 | Outpatient (CLI) | payer MEDICARE, OTHER, MEDICAID | LOC: COL.RAD 06:56 | DX: M48.061 Spinal stenosis, lumbar region without neurogenic claudication (principal); M47.816 Spondylosis without myelopathy or radiculopathy, lumbar region; M51.36 Other intervertebral disc degeneration, lumbar region; M79.18 Myalgia, other site ==

== ENCOUNTER → 2019-02-02 | Outpatient (CLI) | payer MEDICARE, OTHER, MEDICAID ==
[~2019-02-02] VITALS: Ht 162.6 cm; Wt 110.7 kg
[2019-02-02 09:26] VITALS: BP 144/82; PULSE 64
== END ==
LOC: LIGHT 09:04
DX: K21.9 Gastro-esophageal reflux disease without esophagitis (principal); E66.01 Morbid (severe) obesity due to excess calories; Z68.41 Body mass index [BMI] 40.0-44.9, adult; Z71.3 Dietary counseling and surveillance
CPT/HCPCS: G0463

== ENCOUNTER 2019-02-09 10:45 | Outpatient (RCR) | payer MEDICARE, OTHER, MEDICAID | END 2019-02-28 13:47 | disposition home or self-care (01) | LOC: WSC 10:45 | DX: M51.36 Other intervertebral disc degeneration, lumbar region (principal) ==

== ENCOUNTER → 2019-02-15 | Outpatient (CLI) | payer MEDICARE, OTHER, MEDICAID | LOC: MHCPAIN 12:18 | DX: G89.29 Other chronic pain (principal); M47.817 Spondylosis without myelopathy or radiculopathy, lumbosacral region; M54.16 Radiculopathy, lumbar region; M53.3 Sacrococcygeal disorders, not elsewhere classified | CPT/HCPCS: G0463 ==

== ENCOUNTER → 2019-04-27 | Outpatient (CLI) | payer MEDICARE, OTHER, MEDICAID | LOC: COL.RAD 12:26 | DX: Z01.812 Encounter for preprocedural laboratory examination (principal); I65.29 Occlusion and stenosis of unspecified carotid artery; E11.69 Type 2 diabetes mellitus with other specified complication; M47.812 Spondylosis without myelopathy or radiculopathy, cervical region | CPT/HCPCS: Q9967 ==

== ENCOUNTER → 2019-05-09 | Outpatient (CLI) | payer MEDICARE, OTHER, MEDICAID ==
[~2019-05-09] MED LIST changes: +TAMIFLU 75MG75 MG PO; +ZOFRAN ODT8 MG PO
== END ==
LOC: MHCPAIN 10:19
DX: M47.817 Spondylosis without myelopathy or radiculopathy, lumbosacral region (principal); M53.3 Sacrococcygeal disorders, not elsewhere classified
CPT/HCPCS: G0463

== ENCOUNTER 2019-05-25 07:07 | Emergency (ER) | payer MEDICARE, OTHER, MEDICAID ==
[~2019-05-25] VITALS: Ht 162.6 cm; Wt 109.1 kg
[~2019-05-25 07:07] MED LIST changes: -TAMIFLU 75MG75 MG PO; -ZOFRAN ODT8 MG PO
[2019-05-25 07:46] VITALS: TEMP 99.1
[2019-05-25 08:34] LABS: BASO % 0.4 % (0.0-2.0); EOS % 0.4 % (0-4.0); GRAN # 6.6 (1.4-6.5); HEMATOCRIT 40.7 % (37.0-47.0); HEMOGLOBIN 13.5 g/dl (12.5-16.0); LYMPH # 0.6 (1.2-3.4); LYMPH % 7.9 % (20.0-51.0); MEAN CELL VOLUME 91 fl (80.0-100.0); MEAN CORPUSCULAR HEMOGLOBIN 30 pg (27.0-31.0); MEAN CORPUSCULAR HGB CONC 33 g/dl (33.0-37.0); MEAN PLATELET VOLUME 10.4 fl (7.4-10.4); MONO # 0.5 (0.1-0.6); MONO % 6.9 % (1.7-9.3); PLATELET COUNT 180 K/mm3 (130-400); RED BLOOD COUNT 4.49 M/mm3 (4.10-5.30); REDCELL DISTRIBUTION WIDTH-CV 13.2 % (11.5-14.5)
[2019-05-25 08:47] LABS: ALBUMIN 4.1 gm/dL (3.5-5.0); BILIRUBIN,TOTAL 0.7 mg/dL (0.0-1.0); CALCIUM 8.7 mg/dL (8.4-10.2); CREATININE, serum 0.7 (0.52-1.25); POTASSIUM 3.4 mmol/L (3.4-5.0); TOTAL PROTEIN 6.8 gm/dL (6.4-8.2)
[2019-05-25] MEDS ORDERED: TAMIFLU 75MG75 MG PO (09:28)
[2019-05-25] MEDS ORDERED: ZOFRAN ODT8 MG PO (09:31)
[2019-05-25 09:58] VITALS: BP 145/76; PULSE 83
== END 2019-05-25 09:58 | disposition home or self-care (01) ==
LOC: COL.ER 07:07
PROVIDERS: Emergency Medicine
DX: J11.1 Influenza due to unidentified influenza virus with other respiratory manifestations (principal); I10 Essential (primary) hypertension
CPT/HCPCS: J2405; J2930; J7040

== ENCOUNTER → 2019-06-08 | Outpatient (CLI) | payer MEDICARE, OTHER, MEDICAID ==
[~2019-06-08] VITALS: Ht 162.6 cm; Wt 105.7 kg
[~2019-06-08] MED LIST changes: +TAMIFLU 75MG75 MG PO; +ZOFRAN ODT8 MG PO
[2019-06-08 09:24] VITALS: BP 130/80; PULSE 72
== END ==
LOC: LIGHT 09:06
DX: Z68.41 Body mass index [BMI] 40.0-44.9, adult (principal); M47.816 Spondylosis without myelopathy or radiculopathy, lumbar region; K21.9 Gastro-esophageal reflux disease without esophagitis
CPT/HCPCS: G0463

== ENCOUNTER → 2019-07-19 | Outpatient (CLI) | payer MEDICARE, OTHER, MEDICAID | LOC: COL.RAD 07-18 10:30 | DX: M25.551 Pain in right hip (principal) | CPT/HCPCS: J3301; Q9967 ==

== ENCOUNTER 2019-10-05 13:30 | Outpatient (RCR) | payer OTHER, MEDICAID | END 2019-10-11 09:15 | disposition home or self-care (01) | LOC: WSPT 13:30 | DX: M50.10 Cervical disc disorder with radiculopathy, unspecified cervical region (principal) ==

== ENCOUNTER → 2019-10-17 | Outpatient (CLI) | payer OTHER, MEDICAID | LOC: MHCPAIN 09:45 | DX: M47.812 Spondylosis without myelopathy or radiculopathy, cervical region (principal); M54.2 Cervicalgia; R51 Headache; G89.29 Other chronic pain | CPT/HCPCS: G0463 ==

== ENCOUNTER → 2019-11-14 | Outpatient (CLI) | payer MEDICARE, MEDICAID | LOC: COL.RAD 13:30 | DX: M25.551 Pain in right hip (principal) | CPT/HCPCS: J3301; Q9967 ==

== ENCOUNTER → 2019-11-23 | Outpatient (CLI) | payer MEDICARE, MEDICAID ==
[~2019-11-23] VITALS: Ht 162.6 cm; Wt 107.7 kg
[2019-11-23 14:28] VITALS: BP 130/72; PULSE 84
== END ==
LOC: LIGHT
DX: E66.01 Morbid (severe) obesity due to excess calories (principal); Z68.41 Body mass index [BMI] 40.0-44.9, adult; K21.9 Gastro-esophageal reflux disease without esophagitis
CPT/HCPCS: G0463

== ENCOUNTER 2019-12-02 04:24 | Emergency (ER) | payer MEDICARE, MEDICAID ==
[~2019-12-02] VITALS: Ht 162.6 cm; Wt 107.7 kg
[2019-12-02 04:28] VITALS: TEMP 98.6
[2019-12-02 05:18] LABS: BASO % 0.4 % (0.0-2.0); EOS # 0.1 (0.0-0.7); GRAN # 8.5 (1.4-6.5); GRAN % 74.9 % (42.2-75.2); HEMATOCRIT 39.5 % (37.0-47.0); HEMOGLOBIN 12.8 g/dl (12.5-16.0); LYMPH # 1.8 (1.2-3.4); LYMPH % 15.6 % (20.0-51.0); MEAN CELL VOLUME 91 fl (80.0-100.0); MEAN CORPUSCULAR HEMOGLOBIN 30 pg (27.0-31.0); MEAN CORPUSCULAR HGB CONC 32 g/dl (33.0-37.0); MEAN PLATELET VOLUME 9.8 fl (7.4-10.4); MONO # 0.9 (0.1-0.6); MONO % 7.7 % (1.7-9.3); PLATELET COUNT 199 K/mm3 (130-400); RED BLOOD COUNT 4.33 M/mm3 (4.10-5.30); REDCELL DISTRIBUTION WIDTH-CV 13.1 % (11.5-14.5)
[2019-12-02 05:33] LABS: ALBUMIN 3.5 gm/dL (3.5-5.0); BILIRUBIN,TOTAL 0.9 mg/dL (0.0-1.0); CALCIUM 8.3 mg/dL (8.4-10.2); CREATININE, serum 0.69 (0.52-1.25); POTASSIUM 3.4 mmol/L (3.4-5.0); TOTAL PROTEIN 6.4 gm/dL (6.4-8.2)
[2019-12-02 05:45] LABS: ERYTHROCYTE SEDIMENTATION RATE 13 mm/hr (0-30)
[2019-12-02 08:35] VITALS: BP 145/78; PULSE 84
== END 2019-12-02 08:35 | disposition short-term general hospital (02) ==
LOC: COL.ER 04:24
PROVIDERS: Emergency Medicine
DX: G89.18 Other acute postprocedural pain (principal); K21.9 Gastro-esophageal reflux disease without esophagitis; Z87.891 Personal history of nicotine dependence; Z88.6 Allergy status to analgesic agent; Z88.2 Allergy status to sulfonamides
CPT/HCPCS: J2405; J3010; J3370; J7030; J7040; Q9967

== ENCOUNTER → 2019-12-04 | Outpatient (CLI) | payer MEDICARE, MEDICAID | LOC: MC.RAD 14:09 | DX: Z12.31 Encounter for screening mammogram for malignant neoplasm of breast (principal) ==

== ENCOUNTER → 2020-01-16 | Outpatient (CLI) | payer MEDICARE, MEDICAID ==
[~2020-01-16] MED LIST changes: +PEPCID 20MG TAB20 MG PO
== END ==
LOC: MHCPAIN 10:32
DX: M47.817 Spondylosis without myelopathy or radiculopathy, lumbosacral region (principal); M53.3 Sacrococcygeal disorders, not elsewhere classified; G89.29 Other chronic pain; M54.16 Radiculopathy, lumbar region
CPT/HCPCS: G0463

== ENCOUNTER → 2020-01-18 | Outpatient (CLI) | payer MEDICARE, MEDICAID ==
[~2020-01-18] VITALS: Ht 162.6 cm; Wt 104.8 kg
[2020-01-18 13:07] VITALS: BP 130/84; PULSE 76
== END ==
LOC: LIGHT 13:14
DX: E66.01 Morbid (severe) obesity due to excess calories (principal); Z68.39 Body mass index [BMI] 39.0-39.9, adult; K21.9 Gastro-esophageal reflux disease without esophagitis
CPT/HCPCS: G0463

== ENCOUNTER → 2020-01-29 | Outpatient (CLI) | payer MEDICARE, MEDICAID | LOC: COL.RAD 01:30 | DX: M25.551 Pain in right hip (principal) | CPT/HCPCS: J3301; Q9967 ==

== ENCOUNTER → 2020-03-07 | Outpatient (CLI) | payer MEDICARE, MEDICAID ==
[~2020-03-07] VITALS: Ht 162.6 cm; Wt 103.6 kg
[2020-03-07 13:04] VITALS: BP 160/80; PULSE 84
== END ==
LOC: LIGHT 13:00
DX: E66.01 Morbid (severe) obesity due to excess calories (principal); Z68.39 Body mass index [BMI] 39.0-39.9, adult
CPT/HCPCS: G0463

== ENCOUNTER → 2020-07-23 | Outpatient (CLI) | payer MEDICARE, MEDICAID ==
[~2020-07-23] MED LIST changes: +AMBIEN 5MG TABLE5 MG PO; +B COMPLEX & B121 TAB PO; +BLUE-EMU LIDOC1 EACH TP; +DITROPAN 5MG TAB5 MG PO; +DITROPAN XL 5MG5 M1 PO; +LEXAPRO 5MG5 MG PO; +MASON NATURAL2000 IU PO; +NEURONTIN600 MG/TAB PO; +PRINIVIL2.5 MG PO; +VITAMIN C500 MG PO
== END ==
LOC: MHCPAIN 10:27
DX: M47.812 Spondylosis without myelopathy or radiculopathy, cervical region (principal); M54.2 Cervicalgia; M47.816 Spondylosis without myelopathy or radiculopathy, lumbar region; M54.5 Low back pain
CPT/HCPCS: G0463

== ENCOUNTER → 2020-07-25 | Outpatient (CLI) | payer MEDICARE, MEDICAID | LOC: COL.RAD 12:39 | DX: M25.551 Pain in right hip (principal); Z96.641 Presence of right artificial hip joint | CPT/HCPCS: J3301; Q9967 ==

== ENCOUNTER → 2020-10-22 | Outpatient (CLI) | payer MEDICARE, MEDICAID | LOC: MHCPAIN 10:24 | DX: M47.817 Spondylosis without myelopathy or radiculopathy, lumbosacral region (principal); M54.5 Low back pain; M53.3 Sacrococcygeal disorders, not elsewhere classified | CPT/HCPCS: G0463 ==

== ENCOUNTER → 2020-11-14 | Outpatient (CLI) | payer MEDICARE, MEDICAID | LOC: MHCPAIN 07:39 | DX: M47.817 Spondylosis without myelopathy or radiculopathy, lumbosacral region (principal); M54.5 Low back pain; M53.3 Sacrococcygeal disorders, not elsewhere classified ==

== ENCOUNTER → 2020-12-09 | Outpatient (CLI) | payer MEDICARE, MEDICAID | LOC: MC.RAD 09:28 | DX: Z12.31 Encounter for screening mammogram for malignant neoplasm of breast (principal) ==

== ENCOUNTER → 2020-12-26 | Outpatient (CLI) | payer MEDICARE, MEDICAID | LOC: MHCPAIN 07:46 | DX: M47.817 Spondylosis without myelopathy or radiculopathy, lumbosacral region (principal); M54.5 Low back pain; M53.3 Sacrococcygeal disorders, not elsewhere classified | CPT/HCPCS: G0463; J1100; J2250; J3010 ==

== ENCOUNTER → 2020-12-30 | Outpatient (CLI) | payer MEDICARE, MEDICAID | LOC: MHCPAIN 11:33 | DX: M47.817 Spondylosis without myelopathy or radiculopathy, lumbosacral region (principal); M54.5 Low back pain; M53.3 Sacrococcygeal disorders, not elsewhere classified | CPT/HCPCS: J0461; J1100; J2250; J3010 ==

== ENCOUNTER → 2021-01-21 | Outpatient (CLI) | payer MEDICARE, MEDICAID | LOC: MHCPAIN 10:13 | DX: M47.812 Spondylosis without myelopathy or radiculopathy, cervical region (principal); M54.2 Cervicalgia; M54.5 Low back pain; M53.3 Sacrococcygeal disorders, not elsewhere classified | CPT/HCPCS: G0463 ==

== ENCOUNTER 2021-02-25 10:09 | Day surgery (SDC) | payer MEDICARE, MEDICAID ==
[~2021-02-25] VITALS: Ht 162.6 cm; Wt 100.5 kg
[~2021-02-25 10:09] MED LIST changes: -AMBIEN 5MG TABLE5 MG PO; -B COMPLEX & B121 TAB PO; -BLUE-EMU LIDOC1 EACH TP; -DITROPAN 5MG TAB5 MG PO; -DITROPAN XL 5MG5 M1 PO; -LEXAPRO 5MG5 MG PO; -MASON NATURAL2000 IU PO; -NEURONTIN600 MG/TAB PO; -PRINIVIL2.5 MG PO; -VITAMIN C500 MG PO
[2021-02-25 10:15] VITALS: BP 133/78; PULSE 78; TEMP 97.4
[2021-02-25 11:30] VITALS: BP 126/64; PULSE 81; TEMP 97.6
--- NOTE | 2021-02-25 11:30 | NUR ---
1130- PATIENT BROUGHT BACK TO [facility] VIA CART. AMBULATED TO CHAIR WITHOUT DIFFICULTY. COMPLAINS OF KNEE PAIN, DID NOT TAKE PAIN MEDICATIONS THIS MORNING. PLACE ON MONITORS, VITAL SIGNS STABLE. IV INFUSING TO RIGHT WRIST. REQUESTS SODA AND CRACKERS AT THIS TIME. REPORT RECIEVED FROM ESTELITA BRINK, ALL QUESTIONS ANSWERED. CALL VALENCIA WITHIN REACH, WILL CONTINUE TO MONITOR. 1145- DR. ALAV AT BEDSIDE TO DISCUSS RESULTS. TOLERATING FOOD AND DRINK WITHOUT DIFFICULTY. VITAL SIGNS STABLE. 1200- PATIENT STATES SHE FEELS READY TO GO HOME. ALMITA RAYMOND CALLED TO PICK PATIENT UP. 1210- IV REMOVED, INTACT. PATIENT TO GET DRESSED AT THIS TIME. DISCHARGE INSTRUCTIONS REVIEWED WITH PATIENT, ALL QUESTIONS ANSWERED. AWAITING RIDE TO PATIENT FINANCIAL COORDINATOR.
[2021-02-25 11:45] VITALS: BP 148/76; PULSE 77
[2021-02-25 12:00] VITALS: BP 134/81; PULSE 75
--- NOTE | 2021-02-25 12:20 | NUR ---
PATIENT BROUGHT DOWN TO LOBBY VIA WHEEL CHAIR. FRIEND MANDI AT FRONT DOOR TO DRIVE PATIENT HOME. ALL BELONGINGS IN HAND.
== END 2021-02-25 12:20 | disposition home or self-care (01) ==
LOC: SDCO 10:09
DX: R13.19 Other dysphagia (principal); K21.9 Gastro-esophageal reflux disease without esophagitis; Z79.899 Other long term (current) drug therapy
CPT/HCPCS: J2704; J7120

== ENCOUNTER 2021-03-06 05:32 | Day surgery (SDC) | payer MEDICARE, MEDICAID ==
[2021-03-05 09:38] VITALS: BP 132/82; PULSE 76; TEMP 97.8
[2021-03-06] VITALS (13 sets, daily range): BP systolic 95–161; BP diastolic 44–100; PULSE 59–94; TEMP 97.5–99.1
[~2021-03-06] VITALS: Ht 162.6 cm; Wt 106.5 kg
[2021-03-06] MEDS ORDERED: NORCO 325 MG-51 TAB PO (06:28)
[2021-03-06] MEDS ORDERED: B COMPLEX & B121 TAB PO (06:31)
[2021-03-06] MEDS ORDERED: VITAMIN C500 MG PO (06:32)
[2021-03-06] MEDS ORDERED: MASON NATURAL2000 IU PO (06:32)
[2021-03-06] MEDS ORDERED: DITROPAN 5MG TAB5 MG PO (06:33)
[2021-03-06] MEDS ORDERED: PRINIVIL2.5 MG PO (06:33)
[2021-03-06] MEDS ORDERED: NEURONTIN600 MG/TAB PO (06:34)
[2021-03-06] MEDS ORDERED: PRINZIDE 12.5 M1 TA1 PO (06:34)
[2021-03-06] MEDS ORDERED: PHENTERMINE15 MG PO (06:34)
--- NOTE | 2021-03-06 14:32 | NUR ---
Initial visit attempt; Patient resting, Milk And Cream Grader left "Prayer of Hope" card on her door letting her know of the availabity of spiritual care at our hospital.
--- NOTE | 2021-03-06 16:23 | NUR ---
Pt crying with pain, states it's to her back/butt, R knee and L shoulder. Pt refusing any position change. Attempted to assist the patient out of bed, but unable to tolerate once to the point of sitting on the side of the bed. Repositioned patient back in bed with ice on R knee, SCD's in place. K pad to L shoulder and PRN pain medications administered.
--- NOTE | 2021-03-06 19:39 | NUR ---
PT REPORTS PAIN TO RT HIP "20" ON PAIN SCALE. MEDICATED WITH DILAUDID 0.5MG IVP. PT TRIES ICE PACK AND HEATING PAD FOR HIP WITHOUT SUCCESS OF PAIN RELIEF. SL TO RT WRIST, FLUSHES WELL.
--- NOTE | 2021-03-06 20:00 | NUR ---
SPOKE WITH DR ALEJANDRA REGARDING PAIN CONTROL. NEW ORDERS FOR TORADOL AND NORCO GIVEN.
--- NOTE | 2021-03-06 20:12 | NUR ---
PT CALLS OUT CRYING, IN PAIN TO RT HIP. MEDICATED WITH TORADOL 15MG IVP AND OXYCODONE 5MG PO AT THIS TIME.
--- NOTE | 2021-03-06 21:25 | NUR ---
PT REPORTS GOOD PAIN RELIEF WITH TORADOL AND OXYCODONE. ABLE TO GET OOB WITH MINIMAL ASSIST AND WALK TO DOOR AND BACK TO BED. PT HAS BLADDER CONTROL ISSUES, NEW DEPENDS PLACED.
--- NOTE | 2021-03-06 21:29 | NUR ---
MEDICATED WITH HS MEDS INCLUDING NORCO FOR PAIN.
--- NOTE | 2021-03-06 23:54 | NUR ---
PT RATES PAIN 6/10 TO RT KNEE/HIP. MEDICATED WITH OXYCODONE 5MG PO. IV ANTIBIOTIC GIVEN AT THIS TIME.
[2021-03-07 03:18] VITALS: BP 91/44; PULSE 83; TEMP 98.5
--- NOTE | 2021-03-07 03:35 | NUR ---
Assisted to bathroom with one assist and walker, gait slow and steady. Voids and back to bed.
--- NOTE | 2021-03-07 03:42 | NUR ---
Medicated with Toradol 15mg IVP and Oxycodone 5mg po for rt hip/knee pain 11/09.
--- NOTE | 2021-03-07 06:25 | NUR ---
Medicated with Moose 1 tab po for rt knee/hip pain.
[2021-03-07 06:39] LABS: HEMOGLOBIN 10.9 g/dl (12.5-16.0)
[2021-03-07 07:37] VITALS: BP 86/45; PULSE 85; TEMP 98.6
--- NOTE | 2021-03-07 09:42 | NUR ---
Pt awake, rating pain 6-7/10 in her right knee. She does have the K-pad to her left shoulder for discomfort. Markos hose on left leg, right knee with aquacell in place and then wrapped with en wrap. Heart rate regular, lung sounds clear, bowel sounds active and pt is passing gas. SCDs on bilaterally. Requesting Toradol for pain at this time
--- NOTE | 2021-03-07 09:56 | NUR ---
PT working with pt at this time
[2021-03-07 12:05] VITALS: BP 106/65; PULSE 75; TEMP 98.1
--- NOTE | 2021-03-07 12:42 | NUR ---
Director Of Online Merchandising met with patient to discuss discharge planning. Patient lives alone in [place] and sees Dr. Carine Robles for primary care. Patient obtains medications from [facility] with no difficulties. Patient has two rollators, a front wheeled walker, and a wheelchair at home but does not normally need them. Patient is normally independent with ADLS and plans to return home upon discharge. Patient does not have Advance Directives and is not interested in setting up DPOA-HC at this time. Patient is not and has two daughters, Mayelin and Aubrie. Patient states she is not on speaking terms with Aubrie. Patient listed her brother, Delvis (ph#[phone]) as an emergency contact. Patient reports she has outpatient therapy set up at [facility]. Discharge Plan: Home with outpatient therapy.
--- NOTE | 2021-03-07 14:00 | NUR ---
Pt doing well with minimal assist getting around. She does have some chronic pain complaints in her neck and shoulders. Rating knee 5/10 with movement. Pt wanting to stay another night, will update ortho PA
--- NOTE | 2021-03-07 15:00 | NUR ---
Updated Som on pt condition
--- NOTE | 2021-03-07 17:18 | NUR ---
Pt was adament about staying the night another night, stated that therapy told her that she could. Informed her that insurance may not pay. She then stated that she was having pain and needed to stay. Discussed that she is not taking anything more here than what she would take at home. Pt said she would leave after she ate dinner.
--- NOTE | 2021-03-07 17:54 | NUR ---
Pt staying the night per Som HERNANDEZ, pt notified and was very appreciative
[2021-03-07 20:17] VITALS: BP 111/53; PULSE 97; TEMP 100
--- NOTE | 2021-03-07 21:00 | NUR ---
PT IN BED. IS ALERT AND ORIENTED X4. HAS KPAD TO NECK, HAD TEMP OF 100, MOST LIKELY D/T HEATING PAD. USING IS INSTRUCTED. HAS SL TO RT WRIST. DRSG TO RT KNEE, AQUACEL WITH AIRAM WRAP. SBA WITH ACTIVITY. HS MEDS GIVEN WELL OXYCODONE 5MG PO FOR PAIN.
--- NOTE | 2021-03-07 23:19 | NUR ---
MEDICATED WITH NORCO 1 TAB PO NOW FOR PAIN.
--- NOTE | 2021-03-08 00:20 | NUR ---
PT COMPLAINING OF HER LEFT "HIP" HURTING LIKE AFTER SURGERY. ICE PACK PROVIDED.
[2021-03-08 00:42] VITALS: BP 129/56; PULSE 95; TEMP 99.3
--- NOTE | 2021-03-08 03:33 | NUR ---
UP TO BATHROOM AND BACK TO BED. OXYCODONE 5MG PO FOR RT KNEE PAIN.
[2021-03-08 04:18] VITALS: BP 132/63; PULSE 87; TEMP 99.5
--- NOTE | 2021-03-08 06:05 | NUR ---
PT TAKES SCHEDULED AM MED AND [employer].
[2021-03-08 07:18] LABS: HEMOGLOBIN 10.2 g/dl (12.5-16.0)
[2021-03-08 07:23] LABS: HEMATOCRIT 29.9 % (37.0-47.0)
--- NOTE | 2021-03-08 09:30 | NUR ---
Patient alert and oriented, answers questions appropriately. See assessment. Right knee with Aquacel CDI. Pulses palpable to RLE, sensation intact. FWB. TEDs and SCDs in place. Uses walker for ambulation. No c/o at this time.
--- NOTE | 2021-03-08 10:45 | NUR ---
First visit from the dedicated driver. No needs right now.
--- NOTE | 2021-03-08 12:08 | NUR ---
Discharge instructions reviewed with patient, verbalized understanding. Discharged via wheelchair to auto/home with family at 1132.
== END 2021-03-08 11:32 | disposition home or self-care (01) ==
LOC: SDCO 05:32 → SURG 09:42 → SDCO 03-08 11:32
PROVIDERS: Orthopaedic Surgery Sports Medicine
DX: M17.0 Bilateral primary osteoarthritis of knee (principal); M19.031 Primary osteoarthritis, right wrist; M19.012 Primary osteoarthritis, left shoulder; K21.9 Gastro-esophageal reflux disease without esophagitis; M19.90 Unspecified osteoarthritis, unspecified site; G89.29 Other chronic pain; M54.9 Dorsalgia, unspecified; F32.A Depression, unspecified; Z96.651 Presence of right artificial knee joint; Z79.899 Other long term (current) drug therapy; Z82.49 Family history of ischemic heart disease and other diseases of the circulatory system; Z80.9 Family history of malignant neoplasm, unspecified
CPT/HCPCS: OP; A9284; C1713; C1776; J0690; J1170; J1885; J2405; J7120

== ENCOUNTER 2021-03-15 08:09 | Observation (INO) | payer MEDICARE, MEDICAID ==
[~2021-03-15] VITALS: Ht 162.6 cm; Wt 230.5 kg
[~2021-03-15 08:09] MED LIST changes: +B COMPLEX & B121 TAB PO; +DITROPAN 5MG TAB5 MG PO; +MASON NATURAL2000 IU PO; +NEURONTIN600 MG/TAB PO; +PRINIVIL2.5 MG PO; +VITAMIN C500 MG PO
[2021-03-15 09:11] LABS: COLLECTION METHOD CLEAN CATCH
[2021-03-15 09:16] LABS: BASO # 0.1 K/mm3 (0.0-0.2); BASO % 0.8 % (0.0-2.0); EOS # 0.2 K/mm3 (0.0-0.7); EOS % 2.6 % (0-4.0); GRAN # 4.2 K/mm3 (1.4-6.5); GRAN % 63.1 % (42.2-75.2); HEMOGLOBIN 10.6 g/dl (12.5-16.0); LYMPH # 1.6 K/mm3 (1.2-3.4); LYMPH % 23.5 % (20.0-51.0); MEAN CELL VOLUME 90 fl (80.0-100.0); MEAN CORPUSCULAR HEMOGLOBIN 30 pg (27.0-31.0); MEAN CORPUSCULAR HGB CONC 34 g/dl (33.0-37.0); MEAN PLATELET VOLUME 9.3 fl (7.4-10.4); MONO # 0.6 K/mm3 (0.1-0.6); MONO % 8.8 % (1.7-9.3); PLATELET COUNT 345 K/mm3 (130-400); REDCELL DISTRIBUTION WIDTH-CV 12.8 % (11.5-14.5)
[2021-03-15 09:17] LABS: HEMATOCRIT 31.6 % (37.0-47.0)
[2021-03-15 09:27] LABS: MUCOUS Present /lpf; PH 5 (5-8); URINE APPEARANCE Hazy; URINE BACTERIA None Seen /hpf; URINE BILIRUBIN Negative (NEGATIVE); URINE BLOOD Negative (NEGATIVE); URINE COLOR Amber; URINE GLUCOSE Negative (NEGATIVE); URINE KETONE Negative (NEGATIVE); URINE LEUKOCYTE ESTERASE Negative (NEGATIVE); URINE NITRATE Negative (NEGATIVE); URINE PROTEIN(semi-quant) Negative (NEGATIVE); URINE RBC 0-2 /hpf; URINE UROBILINOGEN >=4.0 mg/dL (NEGATIVE)
[2021-03-15 09:44] LABS: ALANINE AMINOTRANSFERASE 10 U/L (0-55); ALBUMIN 3.3 gm/dL (3.4-4.8); ALKALINE PHOSPHATASE 74 U/L (40-150); ANION GAP 11 mmol/L (7-16); AST,SGOT 24 U/L (5-34); BILIRUBIN,TOTAL 0.9 mg/dL (0.2-1.2); BLOOD UREA NITROGEN 11 mg/dL (10-20); CALCIUM 8.6 mg/dL (8.4-10.2); CARBON DIOXIDE 24 mmol/L (23-31); CHLORIDE 105 mmol/L (98-107); CREATININE, serum 0.74 mg/dL (0.57-1.11); GLUCOSE 96 mg/dL (70-99); LIPASE < 10 U/L (8-78); POTASSIUM 3.7 mmol/L (3.5-4.5); SODIUM 140 mmol/L (136-145)
--- NOTE | 2021-03-15 15:44 | NUR ---
SW informed that patient was in ED and was refusing to leave area due to not having any help at home. SW met with patient and patient states that she does not have any assistance at home and does not feel as though she can proceed alone and would prefer to go to a skilled facility for rehand or IPR in the hospital. SW called IPR salesperson flying squad staff to assist with and assessment for patient. IPR staff Rosibel stated that she spoke to patient in ER and Dr as well, and provided that a follow up can be done to review authorization of insurance on Wednesday. Patient is able to transfer into chair and our of bed with walker appropriately. SW will continue to follow.
[2021-03-15] MEDS ORDERED: ULTRAM 50MG TAB50 MG PO (16:21)
[2021-03-15] MEDS ORDERED: XARELTO10 MG PO (16:22)
[2021-03-15] MEDS ORDERED: MACROBID 1100 MG/CAP PO (16:22)
[2021-03-15] MEDS ORDERED: LEXAPRO 5MG5 MG PO (16:23)
[2021-03-15] MEDS ORDERED: AMBIEN 5MG TABLE5 MG PO (16:25)
[2021-03-15 20:36] VITALS: BP 151/64; PULSE 82; TEMP 98.5
--- NOTE | 2021-03-15 23:22 | NUR ---
Patient admitted to room 352 from ER before shift change. Patient eating dinner upon enter the room. Patient reports pain to her right knee area and states just received pain medication. Patient denies SOB or N/V. Patient ambulates to the bathroom with a walker with x1 assit. Oriented patient to the room. Admission paperwork completed. Call light in reach. Will continue to monitor.
[2021-03-16 00:38] VITALS: BP 148/62; PULSE 64; TEMP 98.1
[2021-03-16 03:36] VITALS: BP 129/43; PULSE 71; TEMP 98.5
--- NOTE | 2021-03-16 05:19 | NUR ---
Family chose [facility] in [place]. Called [facility] and asked staff if they prefer patient's PICC line to be removed or not. Per [facility] staff, she will ask director and call this nurse back. Awaiting call from [facility].
[2021-03-16 06:45] LABS: BASO # 0.1 K/mm3 (0.0-0.2); BASO % 0.9 % (0.0-2.0); EOS # 0.2 K/mm3 (0.0-0.7); EOS % 3.1 % (0-4.0); GRAN # 3.3 K/mm3 (1.4-6.5); GRAN % 56.1 % (42.2-75.2); LYMPH # 1.7 K/mm3 (1.2-3.4); LYMPH % 28.9 % (20.0-51.0); MEAN CELL VOLUME 91 fl (80.0-100.0); MEAN CORPUSCULAR HGB CONC 34 g/dl (33.0-37.0); MEAN PLATELET VOLUME 9.1 fl (7.4-10.4); MONO # 0.6 K/mm3 (0.1-0.6); MONO % 9.6 % (1.7-9.3); PLATELET COUNT 324 K/mm3 (130-400); RED BLOOD COUNT 3.08 M/mm3 (4.10-5.30)
[2021-03-16 06:58] LABS: HEMATOCRIT 28.1 % (37.0-47.0); HEMOGLOBIN 9.4 g/dl (12.5-16.0); MEAN CORPUSCULAR HEMOGLOBIN 31 pg (27.0-31.0)
[2021-03-16 07:06] LABS: ALBUMIN 2.9 gm/dL (3.4-4.8); CALCIUM 8.2 mg/dL (8.4-10.2); CREATININE, serum 0.71 mg/dL (0.57-1.11); MAGNESIUM 2.1 mg/dL (1.6-2.6); PHOSPHOROUS 3.2 mg/dL (2.3-4.7); POTASSIUM 3.6 mmol/L (3.5-4.5)
[2021-03-16 07:59] VITALS: BP 119/49; PULSE 74; TEMP 98.4
[2021-03-16 11:52] VITALS: BP 134/45; PULSE 65; TEMP 98.1
--- NOTE | 2021-03-16 13:08 | NUR ---
Sw met with the pt who stated she lives alone at home. prior to hospitalization she was independent on all ADS and did not use any DME. The pt pcp is Dr. Robles and gets her medications from [facility]. The pt nk is her brother, Delvis Kee [phone]. The pt has used [facility] services in the past. D/c: IPR or HH awaiting...
[2021-03-16 17:06] VITALS: BP 149/52; PULSE 79; TEMP 98.5
[2021-03-16 19:57] VITALS: BP 142/50; PULSE 74; TEMP 98.2
--- NOTE | 2021-03-16 20:00 | NUR ---
Bedside report received assumed care for restaurant shift leader. Assessment complete. A&Ox4. Denies pain/nausea/shortness of breath. VS stable. Rating pain 8/10 on pain scale to right knee/hip-described as constant throbbing-percocet given per dr order. Up to bathroom at this time. Had a large hard BM-brown in color. Patient requesting stool softeners. New orders received from MARY Zavala hospitalist and initiated. Noted to have a healing old incision to right knee. No drainage noted. Plan of care discussed for this shift to include meds/pain control/questions/concerns. Verbalizes understanding/denies needs. Call light in reach. Will monitor.
[2021-03-17] VITALS (7 sets, daily range): BP systolic 124–150; BP diastolic 47–82; PULSE 73–88; TEMP 98.1–99.1
--- NOTE | 2021-03-17 04:17 | NUR ---
Called with c/o pain to right knee-rating pain 8/10 on pain scale-described as constant throbbing. Percocet one tab given per dr order.
--- NOTE | 2021-03-17 05:39 | NUR ---
Rested off and on this shift. C/O pain to right knee/hip x2 and received percocet with good results. Ambulated in room to bathroom with stand by assist and walker. Denied questions/concerns. Call light in reach. Will monitor.
[2021-03-17] MEDS ORDERED: DITROPAN XL 5MG5 M1 PO (09:01)
--- NOTE | 2021-03-17 09:55 | NUR ---
Pt assessment complete. Pt is laying in bed upon entry, she is A/O x4. Her breathing is even and unlabored on RA. Pt denies SOB. Pain well controlled at this time. Lidocaine patch placed to R lower back. Pt requesting to shower today. NO further needs at this time. Call light within reach.
--- NOTE | 2021-03-17 16:48 | NUR ---
Patient has been declined to [facility] as she is too functional. JONAS met with patient to discuss SNF options. Patient advised if her [employer] plan would authorize a SNF stay, that would would be her preference over returning home as she feels things were not going well at home after her knee surgery. JONAS faxed referrals to [facility] and [facility]. JONAS also submitted for auth through [facility]. JONAS was contacted by [facility] and was advised they were reviewing everything this afternoon. JONAS was contacted by Fabi at [facility] who advised they can accept if [facility] authorizes a skilled stay.
--- NOTE | 2021-03-17 18:46 | NUR ---
Pt ambulating to the restroom with walker independently per PT. Pt has intermittent pain to R lower back, knee pain well controlled. K pad and PRN pain medications administered. Pt has no needs at this time. Call light within reach.
[2021-03-18 04:04] VITALS: BP 121/46; PULSE 72; TEMP 98.5
[2021-03-18 07:02] LABS: BASO # 0.1 K/mm3 (0.0-0.2); BASO % 0.7 % (0.0-2.0); EOS # 0.2 K/mm3 (0.0-0.7); EOS % 3.1 % (0-4.0); GRAN # 4.2 K/mm3 (1.4-6.5); GRAN % 56.7 % (42.2-75.2); LYMPH # 2.3 K/mm3 (1.2-3.4); LYMPH % 30.6 % (20.0-51.0); MEAN CELL VOLUME 94 fl (80.0-100.0); MEAN CORPUSCULAR HEMOGLOBIN 30 pg (27.0-31.0); MEAN CORPUSCULAR HGB CONC 32 g/dl (33.0-37.0); MEAN PLATELET VOLUME 9.3 fl (7.4-10.4); MONO # 0.6 K/mm3 (0.1-0.6); MONO % 7.5 % (1.7-9.3); PLATELET COUNT 399 K/mm3 (130-400); RED BLOOD COUNT 3.65 M/mm3 (4.10-5.30); REDCELL DISTRIBUTION WIDTH-CV 13.9 % (11.5-14.5)
[2021-03-18 07:05] LABS: HEMATOCRIT 34.3 % (37.0-47.0)
[2021-03-18 07:22] LABS: CALCIUM 9.3 mg/dL (8.4-10.2); CREATININE, serum 0.71 mg/dL (0.57-1.11); POTASSIUM 3.8 mmol/L (3.5-4.5)
[2021-03-18 07:57] VITALS: BP 165/59; PULSE 82; TEMP 98.6
--- NOTE | 2021-03-18 08:34 | NUR ---
Pt assessment complete. Pt is laying in bed upon entry, she is A/O x4. Her breathing is even and unlabored on RA. Pt denies SOB. When asked about pain she states "it's fine", but then requests PRN Oxycodone. Pt reports pain to R lower back 10/10, R knee /. Pt has kpad in place to low back. No N/V at this time. Call light within reach.
[2021-03-18] MEDS ORDERED: BLUE-EMU LIDOC1 EACH TP (11:39)
[2021-03-18 12:18] VITALS: BP 115/97; PULSE 85; TEMP 98.2
--- NOTE | 2021-03-18 13:19 | NUR ---
First visit from the eyeglass frames inspector. prayed with patient. No other needs right now.
--- NOTE | 2021-03-18 14:06 | NUR ---
Follow-up visit; Patient doing well and going home today. Patient thanked Heavy Equipment Field Mechanic for looking in on her again today and also told Heavy Equipment Field Mechanic again how much the prayer and blessings helped her. Heavy Equipment Field Mechanic wished Daria well and God's blessings.
--- NOTE | 2021-03-18 16:25 | NUR ---
Form Setter [employer] [facility] and was advised they will authorize a skilled stay at [facility] (auth#[id number]). JONAS contacted Fabi at [facility] and faxed clinical updates. Fabi advised they would be able to accept patient today. JONAS attended clinical rounds with the team and patient was advised [facility] had accepted her and that [facility] authorized her for a skilled stay. Patient advised that she needs to have her hip injection before she goes anywhere for rehab. Patient is tearful and states that she cannot do any kind of rehab until she has this hip injection. Hospitalist advised patient that the recommendation is for rehab to work on her strength, which will help the hip pain. Hospitalist also offered to adjust patient's pain medications and she declined. Patient is insistent that she requires this hip injection prior a SNF stay. JONAS contacted Dr. Werner's office, who orders this injection and spoke with Dr. Werner's RN. RN advised that the order for Psoas tendon injection under fluoroscopy was sent to [facility] department yesterday as patient receives this as an outpatient. Initially, Dr. Werner wanted patient to wait until 14 days after her knee surgery to have the injection, however if patient wants it earlier so she can go to rehab, they would be agreeable to this. Patient's 14 day rafael will be this , 03/20/21. JONAS collaborated with patient's RN, Liliana who contacted Radiology and was advised they were able to do the injection today, however they had concern it would not be covered under patient's insurance as it was not related to her admission diagnosis. JONAS staffed this with Bar Welder and wiping rag washer, Maria Fernanda and this injection will not be covered if done while patient is admitted to the hospital. Bar Welder advised patient would have to pay out of pocket for this injection. JONAS followed up with Fabi at [facility] and confirmed patient would also not be able to receive this injection during a skilled stay. JONAS followed up with patient to provide this update. Patient states she cannot afford to pay for this injection out of pocket. Patient states she needs this injection to go to rehab so she if she cannot get it while here, she will discharge home. Patient states she had been working with [facility] and would like to continue with them. JONAS contacted Alma with [facility] and faxed referral and discharge orders. JONAS received a call from Dr. Werner who advised he did not feel that patient should discharge home and needed to go to rehab. SW advised that [facility] had accepted, however patient did not want to go if she could not receive the injection prior to. Dr. Werner disagreed that this injection was not related to her admitting diagnosis and felt this should be covered. JONAS again staffed this with Bar Welder and wiping rag washer, Maria Fernanda. SW followed up with patient again to confirm understanding of discharge plan. Patient states "I know [facility] accepted me". Patient states she knows her body and feels going home and scheduling the injection outpatient is the best option for her. Patient again states that she cannot go to rehab without this injection. JONAS provided Hospitalist with Dr. Werner's phone number and requested he call. Hospitalist inquired if patient needed to stay another night and JONAS advised patient verbalized understanding that [facility] was able to accept today, however she chose to go home. JONAS advised that patient's ride will be here shortly and Hospitalist stated she could discharge. Discharge Plan: Home with Home Health.
--- NOTE | 2021-03-18 16:31 | NUR ---
Discharge paperwork and instructions reviewed with patient. All questions answered at this time. IV to RFA dc'd catheter tip intact. Pt wheeled out of facility at this time.
--- NOTE | 2021-03-19 09:52 | NUR ---
terrazzo worker contacted Aminata, epic manager, with Dr Robles and discussed patient's recent hospitalization. Aminata verbalizes understanding and states that [facility] has resumed care for patient in her home.
== END 2021-03-18 16:35 | disposition home or self-care (01) ==
LOC: COL.ER 08:09 → MEDICAL 15:56
PROVIDERS: Family Medicine; Physician Assistant; ADMIT Internal Medicine
DX: R53.1 Weakness (principal); M25.559 Pain in unspecified hip; I10 Essential (primary) hypertension; R32 Unspecified urinary incontinence; E78.5 Hyperlipidemia, unspecified; K21.9 Gastro-esophageal reflux disease without esophagitis; F32.A Depression, unspecified; Z96.651 Presence of right artificial knee joint; Z90.89 Acquired absence of other organs; Z79.891 Long term (current) use of opiate analgesic; Z79.899 Other long term (current) drug therapy
CPT/HCPCS: 99232-AI; 99239; G0378; J2405; J7120

== ENCOUNTER → 2021-03-25 | Outpatient (CLI) | payer MEDICARE, MEDICAID ==
[~2021-03-25] MED LIST changes: +AMBIEN 5MG TABLE5 MG PO; +BLUE-EMU LIDOC1 EACH TP; +DITROPAN XL 5MG5 M1 PO; +LEXAPRO 5MG5 MG PO
== END ==
LOC: COL.RAD 12:23
DX: M25.551 Pain in right hip (principal)
CPT/HCPCS: J3301; Q9967

== ENCOUNTER → 2021-04-08 | Outpatient (CLI) | payer MEDICARE, MEDICAID | LOC: MHCPAIN 07:58 | DX: M47.812 Spondylosis without myelopathy or radiculopathy, cervical region (principal); M47.896 Other spondylosis, lumbar region; M25.561 Pain in right knee; M53.3 Sacrococcygeal disorders, not elsewhere classified | CPT/HCPCS: G0463 ==

== ENCOUNTER 2021-04-30 15:45 | Outpatient (RCR) | payer MEDICARE, MEDICAID | END 2021-05-02 | disposition home or self-care (01) | LOC: WSPT | DX: M25.561 Pain in right knee (principal); Z96.651 Presence of right artificial knee joint ==

== ENCOUNTER → 2021-05-20 | Outpatient (CLI) | payer MEDICARE, MEDICAID | LOC: MHCPAIN 12:45 | DX: M79.18 Myalgia, other site (principal); M54.2 Cervicalgia; M47.812 Spondylosis without myelopathy or radiculopathy, cervical region; R51.9 Headache, unspecified | CPT/HCPCS: G0463 ==

== ENCOUNTER → 2021-06-04 | Outpatient (CLI) | payer MEDICARE, MEDICAID | LOC: MHCPAIN 09:16 | DX: M79.18 Myalgia, other site (principal); M54.2 Cervicalgia | CPT/HCPCS: J1040 ==

== ENCOUNTER → 2021-07-02 | Outpatient (CLI) | payer MEDICARE, MEDICAID | LOC: MHCPAIN 12:00 | DX: M47.812 Spondylosis without myelopathy or radiculopathy, cervical region (principal); M54.2 Cervicalgia; M79.2 Neuralgia and neuritis, unspecified | CPT/HCPCS: G0463 ==

== ENCOUNTER → 2021-08-14 | Outpatient (CLI) | payer MEDICARE, MEDICAID | LOC: MHCPAIN 12:40 | DX: M47.817 Spondylosis without myelopathy or radiculopathy, lumbosacral region (principal); M54.50 Low back pain, unspecified; M53.3 Sacrococcygeal disorders, not elsewhere classified | CPT/HCPCS: G0463 ==

== ENCOUNTER → 2021-09-04 | Outpatient (CLI) | payer MEDICARE, MEDICAID ==
[~2021-09-04] MED LIST changes: +AMBIEN 5MG TABLE5 MG; -AMBIEN 5MG TABLE5 MG PO; +DITROPAN XL 5MG5 M1; -DITROPAN XL 5MG5 M1 PO; +LEXAPRO 5MG5 MG; -LEXAPRO 5MG5 MG PO
== END ==
LOC: MHCPAIN 08:31
DX: M47.817 Spondylosis without myelopathy or radiculopathy, lumbosacral region (principal); M54.50 Low back pain, unspecified; M53.3 Sacrococcygeal disorders, not elsewhere classified
CPT/HCPCS: G0463; J1100; J2250; J3010

== ENCOUNTER 2021-09-17 12:41 | Outpatient (CLI) | payer MEDICARE, MEDICAID ==
[~2021-09-17] VITALS: Ht 162.6 cm; Wt 102.5 kg
[2021-09-17 13:37] VITALS: BP 136/67; PULSE 63; TEMP 99
--- NOTE | 2021-09-17 13:55 | NUR ---
IV catheter removed with tip intact, pressure applied then dressed with gauze and coban. Education given to pt to drink plenty of fluids and take medications as ordered. Pt verbalized understanding. Staff ambulated with pt to exit.
== END 2021-09-17 16:10 ==
LOC: EUO 12:41
DX: M81.0 Age-related osteoporosis without current pathological fracture (principal)
CPT/HCPCS: J3489

== ENCOUNTER → 2021-10-08 | Outpatient (CLI) | payer MEDICARE, MEDICAID | LOC: MHCPAIN 12:25 | DX: M47.812 Spondylosis without myelopathy or radiculopathy, cervical region (principal); M47.896 Other spondylosis, lumbar region; M53.3 Sacrococcygeal disorders, not elsewhere classified; M54.2 Cervicalgia | CPT/HCPCS: G0463 ==

== ENCOUNTER → 2021-11-26 | Outpatient (CLI) | payer MEDICARE, MEDICAID | LOC: MHCPAIN 12:29 | DX: M54.2 Cervicalgia (principal); M53.3 Sacrococcygeal disorders, not elsewhere classified; M79.2 Neuralgia and neuritis, unspecified | CPT/HCPCS: G0463 ==

== ENCOUNTER → 2021-12-22 | Outpatient (CLI) | payer MEDICARE, MEDICAID | LOC: MC.RAD 13:00 | DX: Z12.31 Encounter for screening mammogram for malignant neoplasm of breast (principal) ==

== ENCOUNTER → 2022-01-13 | Outpatient (CLI) | payer MEDICARE, MEDICAID | LOC: MHCPAIN 12:16 | DX: M47.812 Spondylosis without myelopathy or radiculopathy, cervical region (principal); M47.896 Other spondylosis, lumbar region; M54.12 Radiculopathy, cervical region; M53.3 Sacrococcygeal disorders, not elsewhere classified | CPT/HCPCS: G0463 ==

== ENCOUNTER 2022-05-06 08:33 | Inpatient (IN) | payer MEDICARE, MEDICAID ==
[~2022-05-06] VITALS: Ht 162.6 cm; Wt 99.7 kg
[2022-06-08] VITALS (13 sets, daily range): BP systolic 102–183; BP diastolic 50–96; PULSE 58–87; TEMP 97.7–98.3
--- NOTE | 2022-06-08 10:22 | NUR ---
Initial visit; Patient requested prayer from Motor Overhauler. Motor Overhauler knows patient from prior hospitalizations. Motor Overhauler offered prayer and encouragement and let Daria know she would continue to look in on her while she is a patient here. Daria gets lonely and enjoys company.
--- NOTE | 2022-06-08 10:28 | NUR ---
Patient doing well post op. Awake. Tolerating PO intake. Denies nausea. Vss on O2. She reports tingling in her finger and pain in her upper arm. Aquacelldressing to shoulder CDI. Sling on. Teds and scds Ble. Will monitor.
--- NOTE | 2022-06-08 13:53 | NUR ---
Patient having terrible pain in her forarm & fingers. Desribes as burning pain. She is restless & tearful. I notifed Som Renner, He request I call anesthesia. Anesthiesia paged.
--- NOTE | 2022-06-08 16:30 | NUR ---
Patient able to rest comfortably at this time. Burning is still present in her hand and fingers, but less intense. Vital stable on O2. Ice pack to shoulder. Cms intact Sling on. Will monitor
--- NOTE | 2022-06-08 18:32 | NUR ---
Patient rating pain in her hand 10/10. Pain to her elbow 8/10. Pain medication per orders. Patient feels like the pain starting to creep up. she is feeling like she did this afternoon. She is restless in bed & becoming nauseated. Pain is a burning pain. Cms intact. Shoulder dressing intact. Ice pack on. SLing on. Will report to nightnurse.
--- NOTE | 2022-06-09 00:06 | NUR ---
SHIFT REPORT FROM SANJANA BRINK. PATIENT IN BED ON ROOM ENTRY. ALERT AND ORIENTED. HS MEDS PER EMAR. C/O MODERATE BURNING PAIN TO HAND AND FINGERS AND PRN PAIN MEDS PER EMAR. SLING TO L SHOULDER. ICE IN PLACE. AQUACELL TO L SHOULDER CDI. DENIES ADDITIONAL NEEDS. CALL LIGHT IN REACH.
[2022-06-09 04:06] VITALS: BP 138/60; PULSE 68; TEMP 98.1
[2022-06-09 06:23] LABS: HEMOGLOBIN 11.6 g/dl (12.5-16.0)
[2022-06-09 06:25] LABS: HEMATOCRIT 34.8 % (37.0-47.0)
[2022-06-09 07:35] VITALS: BP 113/52; PULSE 67; TEMP 98
--- NOTE | 2022-06-09 09:22 | NUR ---
Follow-up visit; Patient thanked Community Relations Coordinator for coming in again today to visit and offer encouragement and spiritual care. Patient states she is going home today to her pets. She was pleased to have Community Relations Coordinator say a [place] for her and to wishe her well.
--- NOTE | 2022-06-09 11:04 | NUR ---
Customer Care Voice Consultant met with patient to discuss discharge planning. Patient lives in [place] and sees Dr. Robles for primary care. Patient obtains medications from [facility] with no difficulties. When JONAS asked about DME, patient stated she has "everything" but does not normally need any DME. Patient does not use home oxygen but has oxygen on during intake. Patient is normally independent with ADLS and plans to return home at time of discharge. Patient has Home Health services from [facility] and plans to continue services with them. Patient stated her grandson, Fran Diallo is her DPOA-HC. Patient's brother, Delvis (ph#[phone]) is also listed as a contact. JONAS contacted Sydney at [facility] and faxed clinical updates with discharge orders. Discharge Plan: Home with [facility]
[2022-06-09 12:00] VITALS: BP 102/50; PULSE 73; TEMP 98.2
--- NOTE | 2022-06-09 12:28 | NUR ---
DISCHARGE INSTRUCTIONS REVIEWED WITH PT. INT DISCONTINUED. QUESTIONS ANSWERED. PT LEFT PER WHEEL CHAIR WITH STAFF.
== END 2022-06-09 12:40 | disposition home or self-care (01) | DRG 483 ==
LOC: INPTSU 06-08 05:19 → SURG 06-08 05:19 → SDCO 06-08 07:30 → EDSTATUS 06-08 07:30 → SURG 06-08 09:39
PROVIDERS: ADMIT Orthopaedic Surgery Sports Medicine
PROC: 0RRK00Z Replacement of Left Shoulder Joint with Reverse Ball and Socket Synthetic Substitute, Open Approach (ICD-10-PCS; principal; 2022-06-08 07:30)
DX: M19.012 Primary osteoarthritis, left shoulder (principal); M75.102 Unspecified rotator cuff tear or rupture of left shoulder, not specified as traumatic; Z96.651 Presence of right artificial knee joint; F32.A Depression, unspecified; E78.00 Pure hypercholesterolemia, unspecified; M81.0 Age-related osteoporosis without current pathological fracture; G25.81 Restless legs syndrome; G89.29 Other chronic pain; G62.9 Polyneuropathy, unspecified; K21.9 Gastro-esophageal reflux disease without esophagitis; J30.2 Other seasonal allergic rhinitis; I11.0 Hypertensive heart disease with heart failure; I50.9 Heart failure, unspecified; Z88.6 Allergy status to analgesic agent; Z88.1 Allergy status to other antibiotic agents; Z88.2 Allergy status to sulfonamides; Z79.52 Long term (current) use of systemic steroids; Z88.8 Allergy status to other drugs, medicaments and biological substances
CPT/HCPCS: A9284; C1713; C1776; C9290; J0690; J1100; J1170; J2250; J2405; J2704; J3010; J3370; J7120

== ENCOUNTER → 2022-07-14 | Outpatient (CLI) | payer MEDICARE, MEDICAID | LOC: MHCPAIN 12:23 | DX: M54.2 Cervicalgia (principal); M54.50 Low back pain, unspecified; M96.1 Postlaminectomy syndrome, not elsewhere classified | CPT/HCPCS: G0463 ==

== ENCOUNTER → 2023-05-11 | Outpatient (CLI) | payer MEDICARE, MEDICAID ==
[~2023-05-11] MED LIST changes: +TOPAMAX 25MG25 M1 PO
== END ==
LOC: MHCPAIN 12:16
DX: M47.896 Other spondylosis, lumbar region (principal); M54.16 Radiculopathy, lumbar region; M47.812 Spondylosis without myelopathy or radiculopathy, cervical region; M54.2 Cervicalgia
CPT/HCPCS: G0463

== ENCOUNTER → 2023-06-22 | Outpatient (CLI) | payer MEDICARE, MEDICAID | LOC: MHCPAIN 08:23 | DX: M54.2 Cervicalgia (principal); M47.892 Other spondylosis, cervical region; M96.1 Postlaminectomy syndrome, not elsewhere classified | CPT/HCPCS: G0463 ==

== ENCOUNTER → 2023-07-07 | Outpatient (CLI) | payer MEDICARE, MEDICAID | LOC: COL.RAD 12:13 | DX: M51.16 Intervertebral disc disorders with radiculopathy, lumbar region (principal); M47.26 Other spondylosis with radiculopathy, lumbar region; M47.27 Other spondylosis with radiculopathy, lumbosacral region ==

== ENCOUNTER → 2023-11-09 | Outpatient (CLI) | payer MEDICARE, MEDICAID | LOC: MHCPAIN 09:23 | DX: M54.2 Cervicalgia (principal); M54.50 Low back pain, unspecified; M47.896 Other spondylosis, lumbar region; M51.9 Unspecified thoracic, thoracolumbar and lumbosacral intervertebral disc disorder | CPT/HCPCS: G0463 ==

== ENCOUNTER → 2023-11-12 | Outpatient (CLI) | payer MEDICARE, MEDICAID | LOC: MHCPAIN 10:13 | DX: M54.2 Cervicalgia (principal); M25.511 Pain in right shoulder; M54.50 Low back pain, unspecified; M96.1 Postlaminectomy syndrome, not elsewhere classified | CPT/HCPCS: G0463 ==

== ENCOUNTER → 2023-11-16 | Outpatient (CLI) | payer MEDICARE, MEDICAID | LOC: MHCPAIN 13:20 | DX: M47.896 Other spondylosis, lumbar region (principal); M54.16 Radiculopathy, lumbar region; M51.9 Unspecified thoracic, thoracolumbar and lumbosacral intervertebral disc disorder; G89.29 Other chronic pain | CPT/HCPCS: G0463 ==

== ENCOUNTER → 2023-12-15 | Outpatient (CLI) | payer MEDICARE, MEDICAID | LOC: MHCPAIN 12:39 | DX: M43.16 Spondylolisthesis, lumbar region (principal); M48.02 Spinal stenosis, cervical region; M47.26 Other spondylosis with radiculopathy, lumbar region; M46.1 Sacroiliitis, not elsewhere classified; M79.2 Neuralgia and neuritis, unspecified | CPT/HCPCS: G0463 ==

== ENCOUNTER → 2023-12-17 | Outpatient (CLI) | payer MEDICARE, MEDICAID | LOC: COL.RAD 14:03 | DX: M79.661 Pain in right lower leg (principal) ==

== ENCOUNTER → 2024-01-18 | Outpatient (CLI) | payer MEDICARE | LOC: MHCPAIN 08:58 | DX: M47.817 Spondylosis without myelopathy or radiculopathy, lumbosacral region (principal); M43.16 Spondylolisthesis, lumbar region; M47.812 Spondylosis without myelopathy or radiculopathy, cervical region; M96.1 Postlaminectomy syndrome, not elsewhere classified; G89.29 Other chronic pain | CPT/HCPCS: G0463 ==